=== PATIENT | female | born 1940 | race Caucasian/White ===

== ENCOUNTER 2016-08-07 20:05 | Inpatient (IN) | payer OTHER, MEDICARE ==
[~2016-08-07] VITALS: Ht 154.9 cm; Wt 99.8 kg
[~2016-08-07 20:05] MED LIST: ACETYL PO; ALEVE220 M2 PO; ALLEGRA ALLERG180 M1 PO; AMPHETAMINE SALT PO; AMPYRA10 MG PO; ASPIR 8181 MG PO; ATORVASTATIN CA10 MG PO; BACLOFEN10 M1 PO; CALCIUM500 MG PO; CARDURA8 M1 PO; CARNI PO; CHROMIUM200 MCG PO; COPAXONE40 MG/1 ML SC; COZAAR 100MG T100 MG PO; DEXILANT60 M1 PO; DOCUSATE SODIU250 MG PO; DULCOLAX5 M1 PO; ELLURA PO; FUROSEMIDE20 MG PO; FUROSEMIDE40 M1 PO; L-ARGININE500 M1 PO; LOSARTAN POTASS50 MG PO; MAGNESIUM OXID400 MG PO; METAMUCIL PACK3.4 GM PO; METFORMIN HCL500 M3 PO; NEURONTIN300 MG PO; NIFEDICAL XL60 MG PO; OMEGA-3 EPA &1000 MG PO; OSTEO BI-FLEX 21 TAB PO; PREMARIN V0.625 MG/G VAG; PREMARIN VAG; RASPBERRY KETONES PO; RECLAST5 MG/100 M IV; RITE AID KRILL500 MG PO; SENNA8.6 M1 PO; SYNTHROID50 MCG PO; TIZANIDINE HCL2 M1 PO; TIZANIDINE HCL2 MG PO; TIZANIDINE4 MG PO; TRADJENTA5 M1 PO; TUMERIC PO; VALIUM5 M2 PO; VITAB121000 PO; VITAMIN C1000 M1 PO; VITAMIN D35000 IU PO; ZANTAC 150MG150 MG PO; ZOLOFT50 M1 PO; ZYRTEC10 M3 PO
--- NOTE | 2016-08-07 20:47 | ED MVC/FALL/TRAUMA COMPLAINT ---
See Addendum History of Present Illness General Chief Complaint: Fall Stated Complaint: FALL/ ALL OVER PAIN Source: patient, family, old records Exam Limitations: no limitations Vital Signs & Intake/Output Vital Signs & Intake/Output Vital Signs Date Time Temp Pulse Resp B/P Pulse O2 O2 Flow FiO2 Ox Delivery Rate 08/08 0750 98.0 90 20 94/58 94 BIPAP / 0536 94 BIPAP / 0451 94 Part 60% ReBreather 08/08 0445 98.0 63 18 108/58 91 / 0400 97.2 65 20 90/48 94 CPAP 08/08 0256 97.3 72 18 107/50 91 Venti Mask 100% 08/07 2100 82 Nasal 4.5L Cannula 08/07 2017 97.0 90 22 164/82 83 Nasal 4.0L Cannula ED Intake and Output 08/08 0000 08/07 1200 Intake Total Output Total Balance Patient 210 lb Weight Allergies Coded Allergies: hydrochlorothiazide (From AVALIDE) (Intermediate, HEART RACE 11/20/15) irbesartan (From AVALIDE) (Intermediate, HEART RACE 11/20/15) adhesive (SKIN COMES OFF 11/20/15) mold (UNKNOWN 11/20/15) penicillin V (UNKNOWN 11/20/15) Gadolinium-Containing Contrast Medi (SYNCOPE FROM IV CONTRAST 11/20/15) Iodinated Contrast Media - Oral and (IODINATED CONTRAST MEDIA - IV DYE) (SYNCOPE FROM IV CONTRAST 11/20/15) Triage Note: PRESENTS S/P FALL APPROX 2 PM FELL WHILE ATTEMPTING TO TRANSFER MULTIPLE COMPLAINTS RIGHT FOOT / BILATERAL HIPS / BILATERAL SHOULDERS BACK ALSO STATE HAS BEEN HAVING PROBLEMS W/ URI STATES IS SCHED FOR CHEST CT Triage Nurses Notes Reviewed? yes Onset: Abrupt Duration: constant Timing: single episode today Severity: severe Severity Numbers: 10 Injuries/Fall Location: neck, upper extremity, back, pelvis, lower extremity Method of Injury: fall Loss of Consciousness: no loss of consciousness HPI: Patient is a 76-year-old female with a past medical history of significant multiple sclerosis who is currently wheelchair-bound and WEIGHT TRANSFERS ONLY ( PARTIAL WEIGHT BEARING AT BASELINE), obstructive sleep apnea currently on home nocturnal CPAP and oxygen 4 L, hypertension, PULMONARY HYPERTENSION, hyperlipidemia and hypothyroidism who presents to emergency room stating that this evening while patient was trying to wait transfer from her electric wheelchair to the toilet she misstepped and subsequently fell on her buttock and back region in which her knees and then hyperflexed. Patient complained of immediate back and neck pain and bilateral knee and right ankle and foot pain. Patient denies any preceding episode of lightheadedness or dizziness sensation. Denies any head strike. Denies any loss of consciousness. Denies any chest pain or abdominal pain. EMS was brought to the scene and assisted patient to her electric wheelchair however patient was brought in by . Patient states that the left shoulder pain began when the wait transfer from EMS occurred. No medications prior to arrival. Patient also states that the last 3 days she's had GENERALIZED weakness fatigue cough and worsening shortness of breath and not feeling well (TOI FREEMAN) Reconcile Medications Albuterol Sulfate (Proair Hfa) 90 MCG HFA.AER.AD 2 PUF INH Q4-6 PRN PRN sob ( Reported) Atorvastatin Calcium 10 MG TABLET 1 TAB PO 1700 cholesdtrol (Reported) Baclofen (Lioresal) 10 MG TABLET 30 MG PO 5XDAILY MUSCLE SPASMS (Reported) Bisacodyl (Dulcolax) 5 MG TABLET.DR 1 TAB PO AD PRN consti[ation (Reported) CETIRIZINE HCL (Zyrtec) 10 MG CAPSULE 1 CAP PO PRN ALLERGIES (Reported) Cranberry Extract (Ellura) 200 MG CAPSULE 1 CAP PO DAILY SUPPLEMENT (Reported ) Dexlansoprazole (Dexilant) 60 MG CAP.DR.BP 1 CAP PO DAILY GI (Reported) Diazepam (Valium) 5 MG TABLET 1 TAB PO PRN MUSCLE SPASMS (Reported) Docusate Sodium 250 MG CAPSULE 2 SGL PO DAILY STOOL SOFTENER (Reported) Doxazosin Mesylate (Cardura) 8 MG TABLET 1 TAB PO AT BEDTIME HTN (Reported) Enoxaparin Sodium (Lovenox) 40 MG/0.4 ML SYRINGE 0.4 ML SC DAILY dvt prophlyasix (Reported) Fexofenadine Hydrochloride (Ni) 180 MG TAB 1 TAB PO PRN ALLERGIES ( Reported) Furosemide 40 MG TABLET 1 TAB PO DAILY legs (Reported) Glatiramer Acetate (Copaxone) 40 MG/ML SYRINGE 40 MG SC SEE ADMIN CRITERIA MS (Reported) TUES, THURS SAT Levothyroxine Sodium (Synthroid) 50 MCG TABLET 1 TAB PO SEE ADMIN CRITERIA thyoird (Reported) 50 mcg in 5 days per week 75 mcg in 2 days per week Linagliptin (Tradjenta) 5 MG TABLET 1 TAB PO DAILY DIABETES (Reported) Metformin Hydrochloride (Metformin ER) [address] 1 TAB PO DAILY DIABETES ( Reported) Naproxen Sodium (Aleve) 220 MG TABLET 2 TAB PO PRN PAIN (Reported) Polyethylene Glycol 3350 (Miralax) 17 GRAM POWD.PACK 1 PAC PO DAILY condit[ tion (Reported) dissolve in water Psyllium Hydrophylic Muciloid (Metamucil Packet) 3.4 GRAM POWD.PACK 2 TSP PO BID GI (Reported) Sertraline HCl (Zoloft) 50 MG TABLET 1 TAB PO DAILY memtal heaklth (Reported) Spironolactone (Aldactone) 25 MG TABLET 0 PO SEE ADMIN CRITERIA druetic ( Reported) 25 in the AM 12.5 in the evening TIZANIDINE HCL (Tizanidine HCl) 2 MG TAB 1 TAB PO PRN MUSCLE SPASMS (Reported ) (SO DARNELL,KYLE) Past History Travel History Traveled to [place] past 21 day No Medical History Any Pertinent Medical History? see below for history Neurological: multiple sclerosis EENT: NONE Cardiovascular: hypertension, hyperlipidemia Respiratory: obstructive sleep apnea, pulmonary hypertension, 4LNC DEPENDENT Gastrointestinal: umbilical hernia Hepatic: NONE Renal: NONE Musculoskeletal: chronic back pain Psychiatric: NONE Endocrine: hyperthyroidism Blood Disorders: NONE Cancer(s): NONE AIR DEFENCE OFFICER/Reproductive: NONE History of MRSA: Yes History of VRE: No History of CDIFF: No Surgical History Surgical History: non-contributory Psychosocial History Who do you live with Spouse Services at Home None, Oxygen, Physical Therapy What is your primary language Estonian Tobacco Use: Never used ETOH Use: denies use Illicit Drug Use: denies illicit drug use Family History Family History, If Any: BROTHER (OLDER BROTHER: [place], STROKE, CAD, PVD). MOTHER (BREAST CA). FATHER ([place], RENAL FAILURE). SISTER Relation not specified for: FH: diabetes mellitus Hx Contributory? No (GEOVANY CANTRELL,TOI) Review of Systems Review of Systems Constitutional: Reports: no symptoms. Eyes: Reports: no symptoms. Ears, Nose, Throat, Mouth: Reports: no symptoms. Respiratory: Reports: no symptoms. Cardiovascular: Reports: no symptoms. Gastrointestinal/Abdominal: Reports: no symptoms. Genitourinary: Reports: no symptoms. Musculoskeletal: Reports: see HPI, back pain, joint pain, muscle pain. Skin: Reports: no symptoms. Neurological/Psychological: Reports: no symptoms. All Other Systems: Reviewed and Negative (TOI FREEMAN) Physical Exam Physical Exam General Appearance: mild distress, obese Head: atraumatic Respiratory: quiet respiration, decreased breath sounds Comments: HEENT: Normal EENT exam, extraocular motion intact, no nystagmus. Pupils equally round and reactive to light and accommodation. Nose is atraumatic. External auditory canal and Tympanic membranes clear. Pharynx normal. No swelling or edema. Neck: Normal inspection, generalized point tenderness noted decreased active range of motion noted Back: Normal inspection, generalized point tenderness noted, Cardiovascular: Regular rate and rhythms no murmurs rubs or gallops, normal JVP Respiratory: Chest nontender. No respiratory distress. Abdomen: Soft, nontender nondistended, no appreciable organomegaly. Normal bowel sounds. No ascites Extremity: No edema, no calf tenderness to palpation, normal and equal pulses. Bilateral hip decreased active range of motion generalized point tenderness Bilateral knee decreased active range of motion noted generalized point tenderness Right ankle noted point tenderness Right foot generalized point tenderness noted Bilateral lower extremity dermatomes intact pedal pulse +2 Left shoulder normal inspection generalize glenohumeral point tenderness decreased active range of motion noted with 90 of flexion Bilateral upper extremity dermatomes intact radial pulses +2 Neuro: Alert oriented x3, motor sensory normal, cranial nerves II through XII grossly intact. Skin: No appreciable rash on exposed skin, skin is warm and dry. Psych: Mood and affect is normal, memory and judgment is normal. Core Measures ACS in differential dx? No Severe Sepsis Present: No Septic Shock Present: No (TOI FREEMAN) Progress Differential Diagnosis: abd injury, C/T/L spine injury, ext injury, ICH, pelvis injury, pnemothorax, spinal cord injury Plan of Care: Orders Procedure Date/time Status Consistent Carbohydrate 3 08/08 B Active PT Evaluate & Treat 08/08 0700 Active Vital Signs 08/08 530 Active Teach/Educate 08/08 530 Active Pain Treatment and Response 08/08 530 Active Nutritional Intake, Monitor 08/08 530 Active Isolation 08/08 530 Active Intake & Output 08/08 530 Active Patient Care Conference 08/08 530 Active Activity/Ambulation 03/05 0531 Active THERAPIST ORDERS 03/05 0454 Complete OXYGEN SETUP (GEN) 08/08 0454 Complete STREP PNEUMO URINARY ANTIGEN 08/08 0417 Complete LEGIONELLA URINARY ANTIGEN 08/08 0417 Complete TRC EVALUATION (GEN) 08/08 0354 Active PT Evaluate & Treat 08/08 0351 Active Precautions 08/08 0351 Active FingerStick- Glucose 08/08 0345 Active Gallego, Insertion/Removal/Asses 08/08 034 Active CULTURE,URINE 08/08 034 Active CONTIN. POSITIVE AIRWAY PRESS 08/08 0326 Active Code Status 08/08 0326 Active Pathway - chart 08/08 0242 Active House Staff 08/08 0242 Active Code Status 08/08 0242 Complete LACTIC ACID 08/08 0229 Active Admit to inpatient 08/08 022 Active Patient Data 08/08 0221 Active TROPONIN LEVEL 08/08 0015 Complete VTE Mechanical Prophylaxis 08/08 UNK Active Vital Signs 08/08 UNK Active MISSING MEDICATION FORM 08/08 UNK Active ARTERIAL BLOOD GAS (GEN) 08/07 2358 Complete RAPID VIRAL INFLUENZA A 08/07 2358 Complete LOWER RESPIRATORY CULTURE 08/07 2358 Active BLOOD CULTURE 08/07 2329 Active LACTIC ACID 08/07 2329 Complete URINALYSIS 08/07 2319 Complete COMPREHENSIVE METABOLIC PANEL 08/07 231 Complete CBC WITHOUT DIFFERENTIAL 08/07 2319 Complete EKG 08/07 2319 Active Intake & Output 08/07 2101 Active Current Medications Sig/Tash Start time Last Medication Dose Stop Time Status Admin Atorvastatin Calcium 10 MG 1700 08/08 1700 AC (Lipitor) Baclofen 20 MG Q6 08/08 1200 AC (Lioresal 10MG Tablet) Enoxaparin Sodium 40 MG DAILY 08/08 1000 AC (Lovenox) Sertraline HCl 50 MG DAILY 08/08 1000 AC (Zoloft) Insulin Aspart 0 TIDAC 08/08 0800 AC (NovoLOG) Levothyroxine Sodium 0.05 MG DAILY AC 08/08 0700 CAN (Synthroid) Senna/Docusate Sodium 1 TAB BID PRN 08/08 0330 AC (Senokot S) Acetaminophen 650 MG Q6 PRN 08/08 0245 AC (Tylenol) Laboratory Tests 08/08/16 0440: Urinalysis LIGHT H, Urine Color YEL, Urine Clarity CLDY H, Urine pH 6.0, Ur Specific Smith 1.015, Urine Protein NEG, Urine Ketones NEG, Urine Nitrite NEG, Urine Bilirubin NEG, Urine Urobilinogen 0.2, Ur Leukocyte Esterase LARGE H, Ur Microscopic SEDIMENT EXAMINED, Urine RBC 3-5, Urine WBC 25-50 H, Ur Epithelial Cells FEW, Urine Bacteria MANY H, Urine Mucus FEW, Urine Hemoglobin TRACE- INTACT, Urine Glucose NEG 08/08/16 0020: pH 7.42, pCO2 41, pO2 52 L, HCO3 26, ABG O2 Sat (Measured) 86.0 L, P-50 (Temp Corrected) Y, Carboxyhemoglobin 1.0 L, O2 Concentration % 60%, Temperature 97.0 , O2 Delivery Method PRB, Phlebotomy Draw Site RIGHT RADIAL 08/08/16 001: Lactic Acid 0.8 08/08/1614: Anion Gap 10, Estimated GFR > 60, BUN/Creatinine Ratio 36.3 H, Glucose 105 H, Calcium 9.4, Total Bilirubin 0.9, AST 17, ALT 27, Alkaline Phosphatase 74, Troponin I 0.02, Total Protein 6.4, Albumin 3.7, Globulin 2.7, Albumin/Globulin Ratio 1.4, CBC w Diff NO MAN DIFF REQ, RBC 4.64, MCV 84.5, MCH 28.1, RDW 17.3 H , MPV 8.7, Gran % 87.4 H, Lymphocytes % 7.6 L, Monocytes % 3.8, Eosinophils % 0.8, Basophils % 0.4, Absolute Granulocytes 11.8 H, Absolute Lymphocytes 1.0 L , Absolute Monocytes 0.5, Absolute Eosinophils 0.1, Absolute Basophils 0.1, PUBS MCHC 33.2 08/07/162357: Troponin I Cancelled Microbiology 08/09 439 URINE ROUT: Legionella Antigen - COMP 08/09 439 URINE ROUT: Streptococcus pneumoniae Antigen (M - COMP 08/09 439 URINE ROUT: Urine Culture - RECD 08/08 0325 NASOPHARYN: Influenza Virus A & B Rapid Smear - COMP 08/08 001 BLOOD: Blood Culture - RECD 08/08 0000 BLOOD: Blood Culture - RECD 08/07 2357 LOWER RESP: Respiratory Culture - COLB 08/07 2357 LOWER RESP: Gram Stain - COLB Patient will be imaged and where she is symptomatically tender on exam Patient had unremarkable imaging to where patient was symptomatically tender and painful. Patient was evaluated by me and nursing staff which patient was unable to arise out of bed and could not weight-bear transfer. Patient was evaluated for concerns of upper respiratory infection and hypoxia Chest x-ray was unremarkable no changes DISCUSSED HAND OFF WITH DR. DUNLAP PRIOR TO ADMISSION (GEOVANY CANTRELL,TOI) Diagnostic Imaging: Viewed by Me: Radiology Read, CT Scan. Radiology Impression: no acute abnormality Hand-Off Endorsed To: MARTITA DUNLAP MD Endorsed Time: 0120 Pending: EKG, labs Comments: PATIENT: JENIFFER DUEÑAS PRESENT AGE: 76 PATIENT ACCOUNT NO: [id number] : 42 LOCATION: [facility] ORDERING PHYSICIAN: TOI CANTRELL SERVICE DATE: 08/07/16 EXAM TYPE: RAD - XRY-PORTABLE CHEST XRAY EXAMINATION: XR PORTABLE CHEST CLINICAL INFORMATION: Partially visualized opacity of left lung on shoulder radiograph. COMPARISON: Chest CT from 02/06/2016. TECHNIQUE: Portable AP view of the chest was obtained. FINDINGS: Obese body habitus. The patient is slightly rotated to the left. Cardiac silhouette and pulmonary arteries are chronically enlarged. The opacity observed on the left shoulder radiographs appears to correspond to enlarged vessels at the left hilum. Thoracic aorta is calcified. The left lower lobe is suboptimally evaluated due to the patient's body habitus and rotation. However, there is overt pulmonary consolidation. No pulmonary edema or pleural effusion. The visualized bones of the thorax are intact. IMPRESSION: 1. Cardiomegaly. 2. Pulmonary arteries are chronically enlarged, consistent with pulmonary arterial hypertension. PATIENT: JENIFFER DUEÑAS PRESENT AGE: 76 PATIENT ACCOUNT NO: [id number] : 42 LOCATION: [facility] ORDERING PHYSICIAN: TOI CANTRELL SERVICE DATE: 08/07/16 EXAM TYPE: CAT - CT ABD & PELVIS W/O IV CONTRAS EXAMINATION: CT ABDOMEN AND PELVIS WITHOUT CONTRAST CLINICAL INFORMATION: History of fall and pain. COMPARISON: CT abdomen and pelvis from 11/21/2015. TECHNIQUE: Multidetector volumetric imaging was performed from the superior aspect of the liver through the pubic symphysis. Sagittal and coronal reformatted images were obtained on the technologist's workstation. DLP: 1290 mGy-cm FINDINGS: CREDIT RISK SPECIALIST: Obese body habitus. LUNG BASES: There are opacities of atelectasis in the dependent aspect of each lower lobe. Mitral valve annulus is calcified. No pericardial or pleural effusion. LIVER, GALLBLADDER, AND BILIARY TREE: There is hepatomegaly without evidence of focal hepatic lesion or intrahepatic bile duct dilatation. No perihepatic fluid collection. Gallbladder is unremarkable. PANCREAS: Pancreas is atrophied. No peripancreatic edema. SPLEEN: Spleen measures up to 13.3 cm maximum dimension. ADRENAL GLANDS: There is an old, 1.1 cm wide nodule at the apex of the left adrenal gland, likely representing a small adenoma. KIDNEYS AND URETERS: The kidneys are normal in size, shape, and attenuation. No hydronephrosis, hydroureter, or calculi seen. No perinephric stranding. BLADDER: Unremarkable. GASTROINTESTINAL TRACT: Stomach is unremarkable. Loops of bowel are normal in size. There is diverticulosis of the sigmoid colon without diverticulitis. No ascites or pneumoperitoneum. ABDOMINAL WALL: At the level of the umbilicus, there is an old, fat-containing hernia. The hernia sac measures 9.6 cm transverse, 6 cm AP and 7.6 cm craniocaudal. No abdominal wall hematoma. LYMPH NODES: No pathologic sized lymph nodes in the abdomen or pelvis. VASCULAR: There is atherosclerotic calcification of the abdominal aorta without aneurysm. No retroperitoneal hematoma. PELVIC VISCERA: The uterus is absent. No pelvic free fluid. OSSEOUS STRUCTURES: No acute findings within the degenerated lumbar spine compared to 11/21/2015. There is multilevel facet osteoarthritis and disc degeneration as manifest by disc space narrowing, vacuum disc phenomenon and osteophyte formation. At L3-L4, there is chronic loss of the disc space, disc bulge and facet arthropathy resulting in moderate bilateral foraminal stenosis at this level. At L4-L5, there is chronic 0.4 cm of grade 1 anterolisthesis of L4 on L5 without evidence of acute spondylolysis or vertebral compression fracture. There is chronic degenerative disc space narrowing and disc bulge at this level which, combined with the facet arthropathy, produce at least moderate bilateral foraminal stenosis. At L5-S1, the chronic disc degeneration, disc bulge and facet arthropathy produce [id number] bilateral foraminal stenosis. Pelvic bones have normal alignment. There is degenerative subarticular sclerosis and osteophyte formation at the anteroinferior aspect of each SI joint. IMPRESSION: 1. Obese body habitus and chronic hepatosplenomegaly. 2. Fat-containing midline hernia in the umbilical region is unchanged compared to 11/21/2015. 3. Diverticulosis of the sigmoid colon without diverticulitis. 4. No acute fractures or traumatic subluxations within the chronically degenerated lumbar spine. PATIENT: JENIFFER DUEÑAS PRESENT AGE: 76 PATIENT ACCOUNT NO: [id number] : 42 LOCATION: ER ORDERING PHYSICIAN: TOI CANTRELL SERVICE DATE: 08/07/16 EXAM TYPE: CAT - CT CERV SPINE WO IV CONTRAST EXAMINATION: CT CERVICAL SPINE WITHOUT CONTRAST CLINICAL INFORMATION: Fall, pain COMPARISON: None TECHNIQUE: Helical noncontrast CT imaging was acquired through the cervical spine and source images were reviewed along with axial reconstructions and sagittal and coronal MPRs. DLP: 363 mGy-cm FINDINGS: There is normal vertebral body height and alignment of cervical spine. The C1-C2, craniocervical and cervicothoracic junctions are within normal limits. There is mild narrowing of intervertebral disc space with adjacent endplate sclerotic changes at C5-C6, C6-C7 level. Findings are degenerative in nature. The posterior elements are intact. There are multiple small lymph nodes seen in the lower cervical region and superior mediastinum. The paraspinal soft tissue is otherwise unremarkable. The visualized lung apices demonstrate mosaic attenuation of the pulmonary parenchyma which could be due to air trapping. IMPRESSION: 1. No acute fracture or dislocation of cervical spine. 2. Partial visualization of the superior mediastinal and lower cervical adenopathy. PATIENT: JENIFFER DUEÑAS PRESENT AGE: 76 PATIENT ACCOUNT NO: [id number] : 42 LOCATION: ER ORDERING PHYSICIAN: TOI CANTRELL SERVICE DATE: 08/07/16 EXAM TYPE: RAD - XRY-SHOULDER COMPLETE-LEFT EXAMINATION: XR SHOULDER, LEFT CLINICAL INFORMATION: Fall, pain COMPARISON: None TECHNIQUE: AP external rotation, Grashey, scapular Y views of the left shoulder. FINDINGS: The bones and soft tissues are normal. No acute fracture. Glenohumeral and acromioclavicular alignment is anatomic with normal joint space. No abnormal soft tissue calcifications. Partial visualization of left lung opacity. IMPRESSION: No acute fracture or dislocation of left shoulder. Partial visualization of left pulmonary opacity. Consider further chest x-ray evaluation. PATIENT: JENIFFER DUEÑAS PRESENT AGE: 76 PATIENT ACCOUNT NO: [id number] : 42 LOCATION: [facility] ORDERING PHYSICIAN: TOI CANTRELL SERVICE DATE: 08/07/16 EXAM TYPE: CAT - CT LOWER EXT WO IV CONTRAST EXAMINATION: CT LOWER EXTREMITY WITHOUT CONTRAST, BILATERAL CLINICAL INFORMATION: 76-year-old female with history of fall. Bilateral hip, knee, right ankle and foot pain. COMPARISON: CT images of abdomen pelvis from 11/21/2015. TECHNIQUE: Noncontrast multidetector CT imaging was performed from level of the lower pelvis to the midfoot using 0.625 mm collimation. Axial images are presented at 0.625 mm and 2.5 mm slice thickness. Coronal and sagittal reformatted images were generated and reviewed. The images acquired through the feet are suboptimal due to patient motion and image blurring. DLP: 2941 mGy-cm FINDINGS: Patient has an obese body habitus and subcutaneous tissue edema is present within both thighs, legs and ankles. No focal soft tissue hematoma. Incidentally noted is a 1.8 x 3.2 x 5.8 cm intramuscular lipoma of the left vastus lateralis muscle. Bones have normal alignment at the pubic symphysis and hips. No evidence of femoral fracture, acetabular injury or hip joint effusion. At the right knee, there is a moderate joint effusion and tricompartmental osteoarthritis with joint space narrowing most severe at the lateral compartment. At the left knee, there is a small joint effusion and tricompartmental osteoarthritis with joint space narrowing most pronounced (moderate severity) at the lateral tibiofemoral compartment. No acute fracture or traumatic subluxation at either knee. Bones have normal alignment at each ankle. The talar dome is well-positioned within each intact ankle mortise. No ankle joint effusion. The visualized proximal tarsal bones are normal, bilaterally. The Achilles tendon is normal, bilaterally. At each ankle, the visualized flexor, extensor, tibialis and peroneal tendons are grossly intact. IMPRESSION: 1. No acute osseous injury in either extremity from the level of the hips to ankles. 2. 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 3. Obese body habitus and subcutaneous tissue edema within both lower extremities; no focal soft tissue hematoma. (TOI FREEMAN) Hand-Off Endorsed To: KYLE RIZZO MD Endorsed Time: 0700 Pending: consult (GERMÁN DARNELL,MARTITA Phillips) Departure Departure Disposition: STILL A PATIENT Condition: Stable Clinical Impression Primary Impression: Inability to ambulate due to multiple joints Secondary Impressions: Fall, Hypoxia, Pulmonary hypertension Referrals: CAROLA DARNELL,MICHI Phillips (PCP/Family) Departure Forms: Customer Survey General Discharge Information (TOI FREEMAN) PA/WASHER ASSEMBLER Co-Sign Statement Statement: ED Attending supervision documentation- [X] I saw and evaluated the patient. I have also reviewed all the pertinent lab results and diagnostic results. I agree with the findings and the plan of care as documented in the PA's/WASHER ASSEMBLER's documentation. [X] I have reviewed the ED Record and agree with the PA's/WASHER ASSEMBLER's documentation. [] Additions or exceptions (if any) to the PAs/WASHER ASSEMBLER's note and plan are summarized below: [] (GERMÁN DARNELL,MARTITA Phillips) PA/WASHER ASSEMBLER Co-Sign Statement Statement: ED Attending supervision documentation- x I saw and evaluated the patient. I have also reviewed all the pertinent lab results and diagnostic results. I agree with the findings and the plan of care as documented in the PA's/WASHER ASSEMBLER's documentation. [] I have reviewed the ED Record and agree with the PA's/WASHER ASSEMBLER's documentation. [] Additions or exceptions (if any) to the PAs/WASHER ASSEMBLER's note and plan are summarized below: [] (KYLE RIZZO MD)
--- NOTE | 2016-08-07 20:59 | NUR ---
PRESENTS S/P FALL APPROX 2 PM FELL WHILE ATTEMPTING TO TRANSFER MULTIPLE COMPLAINTS RIGHT FOOT / BILATERAL HIPS / BILATERAL SHOULDERS BACK ALSO STATE HAS BEEN HAVING PROBLEMS W/ URI STATES IS SCHED FOR CHEST CT WRITTEN BY ROSALINDA Levine
--- NOTE | 2016-08-07 21:07 | NUR ---
PT MEDICATED WITH 4MG SC MORPHINE PER EMAR FOR PAIN 01/04. PT STATES PAIN ON RIGHT HIP AND RIGHT ARM.
--- NOTE | 2016-08-07 21:49 | NUR ---
THIS RN AND ROSALINDA RAMIREZ BROUGHT PT TO CT SCAN AND MOVED PT TO CT TABLE.
--- NOTE | 2016-08-07 22:43 | NUR ---
PT ROLLED AND CHANGED IN BED, ADJUSTED. PT TRIED TO GO ON THE BEDPAN, BED UMANA WAS UNCOMFORTABLE FOR PT. PT PROVIDED WITH CASSANDRA PAD ON BED AND WILL BE CLEANED . PT HAS CALL ANGLIN IN HAND AND FAMILY AT BEDSIDE.
--- NOTE | 2016-08-07 22:51 | CT SCAN REPORT ---
EXAMINATION: CT ABDOMEN AND PELVIS WITHOUT CONTRAST CLINICAL INFORMATION: History of fall and pain. COMPARISON: CT abdomen and pelvis from 11/21/2015. TECHNIQUE: Multidetector volumetric imaging was performed from the superior aspect of the liver through the pubic symphysis. Sagittal and coronal reformatted images were obtained on the technologist's workstation. DLP: 1290 mGy-cm FINDINGS: DIE SINKER: Obese body habitus. LUNG BASES: There are opacities of atelectasis in the dependent aspect of each lower lobe. Mitral valve annulus is calcified. No pericardial or pleural effusion. LIVER, GALLBLADDER, AND BILIARY TREE: There is hepatomegaly without evidence of focal hepatic lesion or intrahepatic bile duct dilatation. No perihepatic fluid collection. Gallbladder is unremarkable. PANCREAS: Pancreas is atrophied. No peripancreatic edema. SPLEEN: Spleen measures up to 13.3 cm maximum dimension. ADRENAL GLANDS: There is an old, 1.1 cm wide nodule at the apex of the left adrenal gland, likely representing a small adenoma. KIDNEYS AND URETERS: The kidneys are normal in size, shape, and attenuation. No hydronephrosis, hydroureter, or calculi seen. No perinephric stranding. BLADDER: Unremarkable. GASTROINTESTINAL TRACT: Stomach is unremarkable. Loops of bowel are normal in size. There is diverticulosis of the sigmoid colon without diverticulitis. No ascites or pneumoperitoneum. ABDOMINAL WALL: At the level of the umbilicus, there is an old, fat-containing hernia. The hernia sac measures 9.6 cm transverse, 6 cm AP and 7.6 cm craniocaudal. No abdominal wall hematoma. LYMPH NODES: No pathologic sized lymph nodes in the abdomen or pelvis. VASCULAR: There is atherosclerotic calcification of the abdominal aorta without aneurysm. No retroperitoneal hematoma. PELVIC VISCERA: The uterus is absent. No pelvic free fluid. OSSEOUS STRUCTURES: No acute findings within the degenerated lumbar spine compared to 11/21/2015. There is multilevel facet osteoarthritis and disc degeneration as manifest by disc space narrowing, vacuum disc phenomenon and osteophyte formation. At L3-L4, there is chronic loss of the disc space, disc bulge and facet arthropathy resulting in moderate bilateral foraminal stenosis at this level. At L4-L5, there is chronic 0.4 cm of grade 1 anterolisthesis of L4 on L5 without evidence of acute spondylolysis or vertebral compression fracture. There is chronic degenerative disc space narrowing and disc bulge at this level which, combined with the facet arthropathy, produce at least moderate bilateral foraminal stenosis. At L5-S1, the chronic disc degeneration, disc bulge and facet arthropathy produce [id number] bilateral foraminal stenosis. Pelvic bones have normal alignment. There is degenerative subarticular sclerosis and osteophyte formation at the anteroinferior aspect of each SI joint. IMPRESSION: 1. Obese body habitus and chronic hepatosplenomegaly. 2. Fat-containing midline hernia in the umbilical region is unchanged compared to 11/21/2015. 3. Diverticulosis of the sigmoid colon without diverticulitis. 4. No acute fractures or traumatic subluxations within the chronically degenerated lumbar spine.
--- NOTE | 2016-08-07 22:53 | CT SCAN REPORT ---
EXAMINATION: CT CERVICAL SPINE WITHOUT CONTRAST CLINICAL INFORMATION: Fall, pain COMPARISON: None TECHNIQUE: Helical noncontrast CT imaging was acquired through the cervical spine and source images were reviewed along with axial reconstructions and sagittal and coronal MPRs. DLP: 363 mGy-cm FINDINGS: There is normal vertebral body height and alignment of cervical spine. The C1-C2, craniocervical and cervicothoracic junctions are within normal limits. There is mild narrowing of intervertebral disc space with adjacent endplate sclerotic changes at C5-C6, C6-C7 level. Findings are degenerative in nature. The posterior elements are intact. There are multiple small lymph nodes seen in the lower cervical region and superior mediastinum. The paraspinal soft tissue is otherwise unremarkable. The visualized lung apices demonstrate mosaic attenuation of the pulmonary parenchyma which could be due to air trapping. IMPRESSION: 1. No acute fracture or dislocation of cervical spine. 2. Partial visualization of the superior mediastinal and lower cervical adenopathy.
--- NOTE | 2016-08-07 22:58 | RADIOLOGY REPORT ---
EXAMINATION: XR SHOULDER, LEFT CLINICAL INFORMATION: Fall, pain COMPARISON: None TECHNIQUE: AP external rotation, Grashey, scapular Y views of the left shoulder. FINDINGS: The bones and soft tissues are normal. No acute fracture. Glenohumeral and acromioclavicular alignment is anatomic with normal joint space. No abnormal soft tissue calcifications. Partial visualization of left lung opacity. IMPRESSION: No acute fracture or dislocation of left shoulder. Partial visualization of left pulmonary opacity. Consider further chest x-ray evaluation.
--- NOTE | 2016-08-07 23:08 | CT SCAN REPORT ---
EXAMINATION: CT LOWER EXTREMITY WITHOUT CONTRAST, BILATERAL CLINICAL INFORMATION: 76-year-old female with history of fall. Bilateral hip, knee, right ankle and foot pain. COMPARISON: CT images of abdomen pelvis from 11/21/2015. TECHNIQUE: Noncontrast multidetector CT imaging was performed from level of the lower pelvis to the midfoot using 0.625 mm collimation. Axial images are presented at 0.625 mm and 2.5 mm slice thickness. Coronal and sagittal reformatted images were generated and reviewed. The images acquired through the feet are suboptimal due to patient motion and image blurring. DLP: 2941 mGy-cm FINDINGS: Patient has an obese body habitus and subcutaneous tissue edema is present within both thighs, legs and ankles. No focal soft tissue hematoma. Incidentally noted is a 1.8 x 3.2 x 5.8 cm intramuscular lipoma of the left vastus lateralis muscle. Bones have normal alignment at the pubic symphysis and hips. No evidence of femoral fracture, acetabular injury or hip joint effusion. At the right knee, there is a moderate joint effusion and tricompartmental osteoarthritis with joint space narrowing most severe at the lateral compartment. At the left knee, there is a small joint effusion and tricompartmental osteoarthritis with joint space narrowing most pronounced (moderate severity) at the lateral tibiofemoral compartment. No acute fracture or traumatic subluxation at either knee. Bones have normal alignment at each ankle. The talar dome is well-positioned within each intact ankle mortise. No ankle joint effusion. The visualized proximal tarsal bones are normal, bilaterally. The Achilles tendon is normal, bilaterally. At each ankle, the visualized flexor, extensor, tibialis and peroneal tendons are grossly intact. IMPRESSION: 1. No acute osseous injury in either extremity from the level of the hips to ankles. 2. 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 3. Obese body habitus and subcutaneous tissue edema within both lower extremities; no focal soft tissue hematoma.
--- NOTE | 2016-08-07 23:22 | NUR ---
THIS RN AND TAMIA Levine ATTEMPTED TO STAND AMBULATE PT WITH ASSISTANCE, PT UNABLE TO, FAILED.
--- NOTE | 2016-08-07 23:59 | RADIOLOGY REPORT ---
EXAMINATION: XR PORTABLE CHEST CLINICAL INFORMATION: Partially visualized opacity of left lung on shoulder radiograph. COMPARISON: Chest CT from 02/06/2016. TECHNIQUE: Portable AP view of the chest was obtained. FINDINGS: Obese body habitus. The patient is slightly rotated to the left. Cardiac silhouette and pulmonary arteries are chronically enlarged. The opacity observed on the left shoulder radiographs appears to correspond to enlarged vessels at the left hilum. Thoracic aorta is calcified. The left lower lobe is suboptimally evaluated due to the patient's body habitus and rotation. However, there is overt pulmonary consolidation. No pulmonary edema or pleural effusion. The visualized bones of the thorax are intact. IMPRESSION: 1. Cardiomegaly. 2. Pulmonary arteries are chronically enlarged, consistent with pulmonary arterial hypertension.
--- NOTE | 2016-08-08 00:24 | NUR ---
IV ACCESS ESTABLISHED BY THIS RN LH#[id number], LABS DRAWN AND SENT BY THIS RN (LAV, SST, BLUE,SCHAEFFER) BLOOD CULTURES COLLECTED AND SENT.
--- NOTE | 2016-08-08 00:25 | NUR ---
RESPIRATORY IN RM FOR ABG.
[2016-08-08 00:38] LABS: ABSOLUTE BASOPHIL COUNT 0.1 /CUMM (0.0-0.2); ABSOLUTE EOSINOPHIL COUNT 0.1 /CUMM (0.0-0.7); ABSOLUTE GRANULOCYTE CT 11.8 /CUMM (1.4-6.5); ABSOLUTE MONOCYTE COUNT 0.5 /CUMM (0.10-0.60); BASOPHIL % 0.4 % (0.0-2.0); EOSINOPHIL % 0.8 % (0-5); GRANULOCYTE % 87.4 % (42.2-75.2); HEMATOCRIT 39.2 % (37-47); MEAN CORPUSCULAR HGB 28.1 PG (27.0-31.0); MEAN CORPUSCULAR HGB CONC 33.2 G/DL (33.0-37.0); MEAN CORPUSCULAR VOLUME 84.5 FL (81.0-99.0); MEAN PLATELET VOLUME 8.7 FL (7.4-10.4); PLATELET COUNT 200 /CUMM (130-400); RBC DISTRIBUTION WIDTH 17.3 % (11.5-14.5); RED BLOOD CELL CT 4.64 /CUMM (4.20-5.40)
[2016-08-08 01:23] LABS: WHITE BLOOD CELL COUNT 13.5 /CUMM (4.8-10.8)
--- NOTE | 2016-08-08 02:35 | NUR ---
PT TO CT SCAN
--- NOTE | 2016-08-08 02:43 | NUR ---
PT TO CT SCAN
--- NOTE | 2016-08-08 03:00 | NUR ---
HOUSE STAFF IN FOR EVAL
--- NOTE | 2016-08-08 03:18 | NUR ---
PT GOING TO ROOM 183-1
[2016-08-08] MEDS ORDERED: ATORVASTATIN CA10 M1 PO (03:25)
--- NOTE | 2016-08-08 03:26 | NUR ---
FLU SWAB COLLECTED AND SENT BY THIS RN
--- NOTE | 2016-08-08 03:26 | History & Physical ---
VIVIEN DARNELLBLAYNE 08/08/16 0325: General Information and HPI MD Statement: I have seen and personally examined JENIFFER DUEÑAS and documented this H&P. The patient is a 76 year old F BIBA after sustaining a mechanical fall. Source of Information: patient, EMS Exam Limitations: no limitations History of Present Illness: 76 year old woman with multiple medical problems significant for multiple sclerosis brought in by ambulance for evaluation after sustaining a mechanical fall. Patient is somnolent and lethargic, history of present illness is difficult to obtain secondary to clinical condition. She was using the toilet when she went to transfer back to the wheelchair when she accidentally slipped. She reports falling and striking her right side of her body without headstrike. She reports losing consciousness and does not recall how long she was unconscious. The fall was not witnessed and she denies becoming incontinent of urine or stool during this event. She admits to also feeling run down for the past few days with a "cold". She reports symptoms of fatigue, malase, blurred/double vision, lightheadedness/ dizzynessm sneezing, nonproductive cough, decreased oral intake, constipation, and urinary retention. Otherwise she denies any headache, fever, chills, chest pain, palpitations, abdominal pain, nausea, vomiting, diarrhea, urinary frequency/urgency/burning/ pain. PMHx: Multiple sclerosis, VALARIE on CPAP, pulmonary hypertension, HTN, HLD, Hypothyroidism Allergies/Medications Allergies: Coded Allergies: hydrochlorothiazide (From AVALIDE) (Intermediate, HEART RACE 11/20/15) irbesartan (From AVALIDE) (Intermediate, HEART RACE 11/20/15) adhesive (SKIN COMES OFF 11/20/15) mold (UNKNOWN 11/20/15) penicillin V (UNKNOWN 11/20/15) Gadolinium-Containing Contrast Medi (SYNCOPE FROM IV CONTRAST 11/20/15) Iodinated Contrast Media - Oral and (IODINATED CONTRAST MEDIA - IV DYE) (SYNCOPE FROM IV CONTRAST 11/20/15) Home Med list Albuterol Sulfate (Proair Hfa) 90 MCG HFA.AER.AD 2 PUF INH Q4-6 PRN PRN sob ( Reported) Atorvastatin Calcium 10 MG TABLET 1 TAB PO 1700 cholesdtrol (Reported) Baclofen (Lioresal) 10 MG TABLET 30 MG PO 5XDAILY MUSCLE SPASMS (Reported) Bisacodyl (Dulcolax) 5 MG TABLET.DR 1 TAB PO AD PRN consti[ation (Reported) CETIRIZINE HCL (Zyrtec) 10 MG CAPSULE 1 CAP PO PRN ALLERGIES (Reported) Cranberry Extract (Ellura) 200 MG CAPSULE 1 CAP PO DAILY SUPPLEMENT (Reported ) Dexlansoprazole (Dexilant) 60 MG CAP.DR.BP 1 CAP PO DAILY GI (Reported) Diazepam (Valium) 5 MG TABLET 1 TAB PO PRN MUSCLE SPASMS (Reported) Docusate Sodium 250 MG CAPSULE 2 SGL PO DAILY STOOL SOFTENER (Reported) Doxazosin Mesylate (Cardura) 8 MG TABLET 1 TAB PO AT BEDTIME HTN (Reported) Enoxaparin Sodium (Lovenox) 40 MG/0.4 ML SYRINGE 0.4 ML SC DAILY dvt prophlyasix (Reported) Fexofenadine Hydrochloride (Ni) 180 MG TAB 1 TAB PO PRN ALLERGIES ( Reported) Furosemide 40 MG TABLET 1 TAB PO DAILY legs (Reported) Glatiramer Acetate (Copaxone) 40 MG/ML SYRINGE 40 MG SC SEE ADMIN CRITERIA MS (Reported) TUES, THURS SAT Levothyroxine Sodium (Synthroid) 50 MCG TABLET 1 TAB PO SEE ADMIN CRITERIA thyoird (Reported) 50 mcg in 5 days per week 75 mcg in 2 days per week Linagliptin (Tradjenta) 5 MG TABLET 1 TAB PO DAILY DIABETES (Reported) Metformin Hydrochloride (Metformin ER) [address] 1 TAB PO DAILY DIABETES ( Reported) Naproxen Sodium (Aleve) 220 MG TABLET 2 TAB PO PRN PAIN (Reported) Polyethylene Glycol 3350 (Miralax) 17 GRAM POWD.PACK 1 PAC PO DAILY condit[ tion (Reported) dissolve in water Psyllium Hydrophylic Muciloid (Metamucil Packet) 3.4 GRAM POWD.PACK 2 TSP PO BID GI (Reported) Sertraline HCl (Zoloft) 50 MG TABLET 1 TAB PO DAILY memtal heaklth (Reported) Spironolactone (Aldactone) 25 MG TABLET 0 PO SEE ADMIN CRITERIA druetic ( Reported) 25 in the AM 12.5 in the evening TIZANIDINE HCL (Tizanidine HCl) 2 MG TAB 1 TAB PO PRN MUSCLE SPASMS (Reported ) Past History Travel History Traveled to [place] past 21 day No Medical History Neurological: multiple sclerosis EENT: NONE Cardiovascular: hypertension, hyperlipidemia Respiratory: obstructive sleep apnea, pulmonary hypertension, 4LNC DEPENDENT Gastrointestinal: umbilical hernia Hepatic: NONE Renal: NONE Musculoskeletal: chronic back pain Psychiatric: NONE Endocrine: hyperthyroidism Blood Disorders: NONE Cancer(s): NONE INDUSTRIAL MAINTENANCE REPAIRER/Reproductive: NONE History of MRSA: Yes History of VRE: No History of CDIFF: No Surgical History Surgical History: non-contributory Past Family/Social History Family History Relations & Conditions if any BROTHER (OLDER BROTHER: [place], STROKE, CAD, PVD). MOTHER (BREAST CA). FATHER ([place], RENAL FAILURE). SISTER Relation not specified for: FH: diabetes mellitus Psychosocial History Services at Home: None, Oxygen, Physical Therapy ETOH Use: denies use Illicit Drug Use: denies illicit drug use Review of Systems Review of Systems Constitutional: Reports: see HPI. Exam & Diagnostic Data Last 24 Hrs of Vital Signs/I&O Vital Signs Date Time Temp Pulse Resp B/P Pulse O2 O2 Flow FiO2 Ox Delivery Rate 08/08 0256 97.3 72 18 107/50 91 Venti Mask 100% 08/071 82 Nasal 4.5L Cannula 08/07 2017 97.0 90 22 164/82 83 Nasal 4.0L Cannula Intake & Output 08/08 0800 08/08 0000 08/07 1600 Intake Total Output Total Balance Patient 95.254 kg Weight Physical Exam General Appearance Mild Distress, Somnolent/Lethargic Skin No Rashes, No Breakdown, No Significant Lesion, Chronic lower extremity skin changes HEENT Atraumatic, Dry mucous membranes, PERRL Neck Supple, No JVD, Nontender Cardiovascular Regular Rate, Normal S1, Normal S2, No Murmurs Lungs diminished breath sounds bilaterally without any obviosu wheezing, rhonchi , or crackles Abdomen Normal Bowel Sounds, Soft, No Tenderness, No Hepatospenomegaly, No Masses, Obese Neurological Sensation Intact, Slow speech Extremities No Clubbing, No Cyanosis, Normal Pulses Vascular Normal Pulses, Pulses Symmetrical Last 24 Hrs of Labs/Kulwinder: Laboratory Tests 08/08/16 0020: pH 7.42, pCO2 41, pO2 52 L, HCO3 26, ABG O2 Sat (Measured) 86.0 L, P-50 (Temp Corrected) Y, Carboxyhemoglobin 1.0 L, O2 Concentration % 60%, Temperature 97.0 , O2 Delivery Method PRB, Phlebotomy Draw Site RIGHT RADIAL 08/08/16 0015: Lactic Acid 0.8 08/08/16 001: Anion Gap 10, Estimated GFR > 60, BUN/Creatinine Ratio 36.3 H, Glucose 105 H, Calcium 9.4, Total Bilirubin 0.9, AST 17, ALT 27, Alkaline Phosphatase 74, Troponin I 0.02, Total Protein 6.4, Albumin 3.7, Globulin 2.7, Albumin/Globulin Ratio 1.4, CBC w Diff NO MAN DIFF REQ, RBC 4.64, MCV 84.5, MCH 28.1, RDW 17.3 H , MPV 8.7, Gran % 87.4 H, Lymphocytes % 7.6 L, Monocytes % 3.8, Eosinophils % 0.8, Basophils % 0.4, Absolute Granulocytes 11.8 H, Absolute Lymphocytes 1.0 L , Absolute Monocytes 0.5, Absolute Eosinophils 0.1, Absolute Basophils 0.1, PUBS MCHC 33.2 08/07/162357: Troponin I Cancelled Microbiology 08/08 0325 NASOPHARYN: Influenza Virus A & B Rapid Smear - RECD 08/08 0015 BLOOD: Blood Culture - RECD 08/08 0000 BLOOD: Blood Culture - RECD 08/07 2357 LOWER RESP: Respiratory Culture - ORD 08/07 2357 LOWER RESP: Gram Stain - ORD Diagnostic Data Other Results CT CHEST WITHOUT CONTRAST IMPRESSION: 1. Regions of opacity in the left upper lobe and bilateral lower lobes which are mostly curvilinear in nature, favoring that this at least mostly represents atelectasis. A component of superimposed consolidation would be difficult to exclude in the proper clinical setting. 2. Multiple scattered mediastinal lymph nodes, the largest of which is mildly enlarged anterior to the suman; appearance is similar to prior. 3. Cardiomegaly and trace pericardial effusion. 4. Dilated main pulmonary artery, suspicious for pulmonary artery hypertension. PORTABLE CHEST XRAY IMPRESSION: 1. Cardiomegaly. 2. Pulmonary arteries are chronically enlarged, consistent with pulmonary arterial hypertension. CT LOWER EXT WO IV CONTRAST IMPRESSION: 1. No acute osseous injury in either extremity from the level of the hips to ankles. 2. 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 3. Obese body habitus and subcutaneous tissue edema within both lower extremities; no focal soft tissue hematoma. XRY-SHOULDER COMPLETE-LEFT IMPRESSION: No acute fracture or dislocation of left shoulder. Partial visualization of left pulmonary opacity. Consider further chest x-ray evaluation. CT CERV SPINE WO IV CONTRAST IMPRESSION: 1. No acute fracture or dislocation of cervical spine. 2. Partial visualization of the superior mediastinal and lower cervical adenopathy. CT ABD & PELVIS W/O IV CONTRAS IMPRESSION: 1. Obese body habitus and chronic hepatosplenomegaly. 2. Fat-containing midline hernia in the umbilical region is unchanged compared to 11/21/2015. 3. Diverticulosis of the sigmoid colon without diverticulitis. 4. No acute fractures or traumatic subluxations within the chronically degenerated lumbar spine. Assessment/Plan Assessment: 76 year old woman with multiple medical problems seen for evaluation of a mechanical fall and recent upper respiratory infection. Specific information is difficult to obtain secondary to patients clinical condition, however she comments that her was sick recently with upper respiratory symptoms for whichs she also has developed since the middle of the past week. Patient reported received a Z-pack from her epilepsy physician Dr. Haley for persistent upper respiratory symptoms on 08/06/16 for which she only took two doses. Vital signs on admission demonstrate temp 97.0-97.3, HR 72-90, RR 18-22, BP 107- 164/50-82, O2 82-91% on 100% FiO2 via Venti mask. Physical examination is remarkable for an obese elderly woman appearing somnolent in moderate respiratory distress with minimal accessory muscle use for respiratory and an otherwise normal cariopulmonary/abdominal/neurologic examination. Lab work is significant for WBC 13.5. Serum chemistries are within normal limits. Lactic acid 0.8, Troponin 0.02. ABG pH 7.42 / CO2 41 / O2 52 / HCO3 26. Rapid flu negative. Multiple imaging studies are negative for any acute fracture or bleed. Patient has contrast allergy and is unable to have CTA. CT Chest without contrast is suggestive of a focal consolidation vs atelectasis and comments on a dilated pulmonary artery possibly suggestive of her previously known pulmonary hypertension. Given the limited information assessed from patient in regards to history of present illness and mechanism of injury it is unclear of the etiology of patients persistent acute onset shortness of breath and hypoxia. Differential diagnoses include pneumonia, pulmonary embolism, diagphragm injury. Patient is given respiratory support and admitted to the telemetry floor for continuous pulse oximetry and further care. Acute Hypoxic Respiratory Failure / Possible Community Acquired Pneumonia Recent URI with failed outpatient failed on Azithromycin. Patient of Dr. Haley. Acute onset hypoxia in the setting of trauma. Rapid flu negative. CT chest suggestion of consolidation versus atelectasis. -Telemetry, continuous pulse oximetry -TRC with albuterol/ipratropium as needed -Supplemental O2 as needed, goal >92% -NS @ 75mL/hr -Ceftriaxone 1g IV Daily -Azithromycin 500mg IV Daily -Pulm consult in AM -F/U Blood/Urine Cultures -F/U Strep/Legionella Antigen Mechanical Fall Patient is dependent upon a wheelchair at home for ambulation and is able only to perform transfers. She otherwise states she is able to complete all other activities of daily living. Multiple imaging studies on admission were negative for acute fracture or bleed. -PT evaluation History of Multiple Sclerosis Patient of Dr. Lewis. 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 Acute respiratory failure with hypoxia Core Measures/Miscellaneous Acute Coronary Syndrome ACS Diagnosis: No Cerebrovascular Accident CVA/TIA Diagnosis: No Congestive Heart Failure CHF Diagnosis: No Venous Thromboembolism VTE Risk Factors: Acute medical illness, Age > 40, Immobility, paresis, Obesity No [facility] VTE prophylaxis d/t: No contraindications No VTE Pharm Prophylaxis d/t: No contraindications VTE Diagnosis: No VTE Type: NONE VTE Confirmed by (Test): NONE Severe Sepsis Severe Sepsis Present: No Septic Shock Septic Shock Present: No Miscellaneous Documentation Attending Case Discussed With: ANGELITA MOSELEY MD Primary Care Physician: MICHI SRIVASTAVA MD Patient sees these Specialists Dr. Debbie Haley Level of Patient Care: Telemetry Consults Needed: Consulting Specialty: Pulmonary Disease TORSTEN WANG 08/08/16 0425: Resident Review Statement Resident Statement: examined this patient, discussed with internal grinder, agreed with internal grinder, reviewed images, amended to note Other Findings: 76-year-old lady with past medical history of MS since 1970s, oxygen dependent. # liter duriong the day and 4 L on CPAP at night ,diabetes?, Hyperlipidemia, anxiety depression, chronic leg swelling, obesity, wheelchair bound brought by ambulance to hospital with chief complaint of fall. Patient reported that she was not feeling good for at least couple of days and his started having dry coughing, generalized weakness, sneezing. On Tuesday she called Rolando Haley MD and started taking azithromycin only for 1 dose. However today when she was transferring from toilet to her electric chair her knees collapsed and she fell on the floor, and was found by her . She denied any loss of consciousness, palpitation, headache before or after the fall. Patient does report of double vision and blurry vision, constipation, urinary retention which the latter 2 are chronic. Patient denies any fevers or chills however she reports the had URI recently. Patient denies any chest pain or palpitation, but does report a pain in her right hip and right shoulder after the fall. Vital signs on arrival is notable for hypoxia which required to put the patient on nonrebreather for obtaining the O2 saturation over 92%. She has chronic weakness on the legs however she is unable to do her cooking and dressing and she take a shower. During the H&P patient was very somnolent however she was easily arousable and able to answer to questions. Patient received 4 mg of morphine in the ED before the examination. Physical exam recorded above and is notable for dry mucosa, decreased breath sound bilaterally, bilateral leg edema with skin changes. bilateral medial knee effusions without redness noted. patient had mild bilateral tenderness on both knee caps ABG was notable low PO2 of 52, however PCO2 and pH are within normal limits WC 13.5 87.4% granulocytes troponin and lactic acid were within normal limits Notable imaging of the shoulder, right lower extremity, chest, abdomen did not show any fracture however it did show consolidation in the Which can be atelectasis versus pneumonia. Assessment and plan #Hypoxia due to Community-acquired pneumonia * Admit to telemetry for oxygen saturation monitoring * Vital signs per shift * Keep O2 saturation over 92% * Put the patient on IV ceftriaxone and IV azithromycin * Blood cultures 2, sputum culture * Rapid flu was negative * Check urine Legionella and strep antigen * Continue CPAP at night * PULM consult in the morning * CBC and BMP in the morning * If Patient condition did not improve within 24-48 hours other causes such as PE should be ruled out * [facility] nebs #Multiple sclerosis/Urinary retention/-constipation Hospital did not have Copaxone. Please assess the patient to call her to bring Copaxone for Tuesday injections. -Place Gallego catheter and check UA and UC -Continue baclofen -Aggressive bowel regimen #Fall -PT evaluation -Tylenol and tramadol for pain #Hypertension -Hold Aldactone, Lasix, Cardura #Diabetes? (Patient says she is prediabetic) -Hold metformin and trajenta -Accu checks, sliding scale insulin, diabetic diet #Hypothyroidism/hyperLipidemia,/anxiety depression/GERD -Levothyroxine 75 MCG on Tuesday and Tuesday and 50 MCG on the rest of the week -Continue Zoloft, continue statin , -continued dexilant (replaced with omeprazole) DNR/DNI, Tylenol and tramadol for pain, diabetic diet, DVT prophylaxis is Lovenox which patient was already on at home and a LPS PRADIP DARNELL, [facility] 08/08/16 0518: Attending MD Review Statement Attending Statement Attending MD Statement: examined this patient, discuss w/resident/PA/HAND SOLE SEWER, agreed w/resident/PA/HAND SOLE SEWER Attending Assessment/Plan: 76 yo morbidly obese F with h/o advanced multiple sclerosis on Copaxone, severe VALARIE on CPAP (4L O2), pulmonary hypertension, chronic respiratory failure on 3L O2, HTN, T2DM (last A1c 5.3 Feb 2016), is brought for evaluation of right hip / shoulder pain s/p mechanical fall while trying to transfer herself from toilet seat back to the wheelchair. She denies LOC or head strike. At baseline, she is wheelchair bound, but is able to transfer herself without assistance. Of note, she has not been feeling well for past few days with URI/ flu like symptoms. Sick contact + (), no recent travel. She received flu shot. She got a prescription of Zpak from Dr. Haley for possible bronchitis/ pneumonia, of which she took the first dose last night. Dry cough+, urinary retention, no dysuria. On ER arrival, patient was hypoxic to 83% on 4L --> 91% on 100% VM, afebrile, HR 60-70's, BP 107/50. On our evaluation, patient was very lethargic, but arousable and able to answer questions appropriately. Dry mucous membranes. Chest: b/l clear anteriorly, reduced breath sounds at bases, Heart S1S2 regular, Abd soft, NT. Extremities: contracted, with chronic venous stasis, trace edema+. Labs: WBC 13.5, BUN 29, glucose 105, lactic acid 0.8, trop neg. AB.42/41/52/ 26. Flu swab negative. CT abd/pelvis: chronic hepatosplenomegaly, umbilical hernia. CT cervical spine: neg. Left shoulder: no fracture, partial visualization of left pulmonary opacity. CT LE: no acute injury, tricompartmental osteoarthritis and effusions of both knees (R>L). CXR: cardiomegaly, chronic pulmonary arterial hypertension. CT chest: opacity left UL and bilateral lower lobes ?atelectasis vs. Consolidation. RUL nodule and mediastinal LN - no change. Cardiomegaly. Echo ( 2015): EF 65-70%. 1. Acute on chronic hypoxemic respiratory failure 2/2 possible CAP vs. ? aspiration, and sleep apnea/ severe pulmonary hypertension. Tele admit for continuous pulse oximetry for 24 hours until improvement, TRC nebs, IST, panculture, IV ceftriaxone and azithro, NPO for now, IV fluids, Pulm consult. Continue CPAP at night. PE is a possibility in this elderly obese wheelchair bound lady, we had planned CTA chest however patient is allergic to contrast dye. Hence, held off and did a plain CT chest to evaluate pneumonia. If inspite of antibiotics, patient's respiratory status does not improve, would consider V/ Q scan to rule out PE. Of note, patient has been on lovenox for DVT prevention at home. 2. Multiple sclerosis last exacerbation 1 year ago. c/o urinary retention which is chronic, place Gallego and check urinalysis to rule out UTI. Treat constipation. Continue baclofen and copaxone. 3. Physical deconditioning, mechanical fall. Place on fall precautions, obtain PT eval and possible placement. Pain management with Tylenol, avoid sedative meds. 4. T2DM. Need to confirm if patient is taking metformin and tradjenta, as last A1c was normal. Place on accucheks, novolog low dose SS. 5. Chronic b/l knee pain 2/2 severe OA with effusions. No concern for septic arthritis. Pain management. DVT ppx Lovenox. DNR/I.
--- NOTE | 2016-08-08 03:26 | CT SCAN REPORT ---
EXAMINATION: CT CHEST WITHOUT CONTRAST CLINICAL INFORMATION: Hypoxia, cardiomegaly, elevated white blood cell count COMPARISON: Chest x-ray 08/07/2016, CT 02/06/2016 TECHNIQUE: Multidetector volumetric CT imaging of the chest was done. Axial MIP volume rendering provided. Sagittal and coronal reformatted images were obtained. DLP: 1089.35 mGy-cm FINDINGS: LUNGS: There are regions of predominantly curvilinear opacity in the left upper lobe and bilateral lower lobes, favoring predominantly atelectasis. There is a 3 mm right upper lobe nodule posteriorly on image 17/73, unchanged from prior. MEDIASTINUM: The visualized thyroid gland is unremarkable. Multiple scattered mediastinal lymph nodes are seen, measuring up to 1.1 cm in size anterior to the suman, similar to prior. There is mild cardiomegaly. Trace pericardial effusion is noted. Scattered atherosclerotic calcifications are present. Coronary artery calcifications are present. The main pulmonary artery is dilated to approximately 3.5 cm, suspicious for pulmonary artery hypertension. PLEURA: Trace pleural effusions are difficult to entirely exclude. No pneumothorax. AXILLA: No lymphadenopathy. UPPER ABDOMEN: Stable small left adrenal nodule is again seen, statistically likely an adenoma. OSSEOUS STRUCTURES: Degenerative changes are noted in the spine. IMPRESSION: 1. Regions of opacity in the left upper lobe and bilateral lower lobes which are mostly curvilinear in nature, favoring that this at least mostly represents atelectasis. A component of superimposed consolidation would be difficult to exclude in the proper clinical setting. 2. Multiple scattered mediastinal lymph nodes, the largest of which is mildly enlarged anterior to the suman; appearance is similar to prior. 3. Cardiomegaly and trace pericardial effusion. 4. Dilated main pulmonary artery, suspicious for pulmonary artery hypertension.
[2016-08-08] MEDS ORDERED: LOVENOX40 MG/0.1 SC (03:30)
[2016-08-08] MEDS ORDERED: PROAIR HFA8.5 GM INH (03:31)
--- NOTE | 2016-08-08 03:35 | NUR ---
REPORT GIVEN TO ROSALINDA SCHAFFER.
[2016-08-08] MEDS ORDERED: ALDACTONE25 MG PO (03:38)
[2016-08-08] MEDS ORDERED: MIRALAX17 G1 PO (03:54)
--- NOTE | 2016-08-08 03:54 | Admission Certification ---
Admission Certification Certification Statement - As attending physician, I certify that at the time of - admission, based on clinical presentation, severity of - symptoms, need for further diagnostic testing and - therapeutic interventions, and risk of adverse outcomes - without in-hospital treatment, in my clinical assessment, - this patient requires an acute hospital stay for a minimum - of two nights or longer. I have also considered psychsocial - factors such as support system, advanced age, financial - issues, cognitive issues, and failed out-patient treatments, - past re-admission history, safety of patient, and lack of - compliance as applicable. Specific rationale supporting this admission is: Acute on chronic hypoxemic respiratory failure, community acquired pneumonia. Mechanical fall, needs PT and possible placement.
[2016-08-08] MEDS ORDERED: CARDURA8 M1 PO (03:59)
[2016-08-08 04:00] VITALS: BP 90/48
[2016-08-08 04:45] VITALS: BP 108/58
[2016-08-08 07:50] VITALS: BP 94/58
[2016-08-08 10:00] VITALS: BP 102/64
--- NOTE | 2016-08-08 10:29 | Cons- Pulmonary ---
General Information and HPI Consulting Request Date of Consult: 08/08/16 Requested By: augustina Reason for Consult: Hypoxic respiratory failure History of Present Illness: Is a 76-year-old with advanced MS severe VALARIE on ASV chronic hypoxia pulmonary hypertension admitted after a fall and inability to return to her wheelchair. She was found to be hypoxic she was unable to have a CTA noncontrast CT of the chest showed multifocal infiltrates. In view of leukocytosis she was started on antibiotics for community acquired pneumonia. There is no evidence of hypercarbia. Patient is comfortable on high flow nasal oxygen. She denies chest pain or hemoptysis. She is for the most part immobile secondary to advanced MS Allergies/Medications Allergies: Coded Allergies: hydrochlorothiazide (From AVALIDE) (Intermediate, HEART RACE 11/20/15) irbesartan (From AVALIDE) (Intermediate, HEART RACE 11/20/15) adhesive (SKIN COMES OFF 11/20/15) mold (UNKNOWN 11/20/15) penicillin V (UNKNOWN 11/20/15) Gadolinium-Containing Contrast Medi (SYNCOPE FROM IV CONTRAST 11/20/15) Iodinated Contrast Media - Oral and (IODINATED CONTRAST MEDIA - IV DYE) (SYNCOPE FROM IV CONTRAST 11/20/15) Home Med List: Albuterol Sulfate (Proair Hfa) 90 MCG HFA.AER.AD 2 PUF INH Q4-6 PRN PRN sob ( Reported) Atorvastatin Calcium 10 MG TABLET 1 TAB PO 1700 cholesdtrol (Reported) Baclofen (Lioresal) 10 MG TABLET 30 MG PO 5XDAILY MUSCLE SPASMS (Reported) Bisacodyl (Dulcolax) 5 MG TABLET.DR 1 TAB PO AD PRN consti[ation (Reported) CETIRIZINE HCL (Zyrtec) 10 MG CAPSULE 1 CAP PO PRN ALLERGIES (Reported) Cranberry Extract (Ellura) 200 MG CAPSULE 1 CAP PO DAILY SUPPLEMENT (Reported ) Dexlansoprazole (Dexilant) 60 MG CAP.DR.BP 1 CAP PO DAILY GI (Reported) Diazepam (Valium) 5 MG TABLET 1 TAB PO PRN MUSCLE SPASMS (Reported) Docusate Sodium 250 MG CAPSULE 2 SGL PO DAILY STOOL SOFTENER (Reported) Doxazosin Mesylate (Cardura) 8 MG TABLET 1 TAB PO AT BEDTIME HTN (Reported) Enoxaparin Sodium (Lovenox) 40 MG/0.4 ML SYRINGE 0.4 ML SC DAILY dvt prophlyasix (Reported) Fexofenadine Hydrochloride (Ni) 180 MG TAB 1 TAB PO PRN ALLERGIES ( Reported) Furosemide 40 MG TABLET 1 TAB PO DAILY legs (Reported) Glatiramer Acetate (Copaxone) 40 MG/ML SYRINGE 40 MG SC SEE ADMIN CRITERIA MS (Reported) TUES, THURS SAT Levothyroxine Sodium (Synthroid) 50 MCG TABLET 1 TAB PO SEE ADMIN CRITERIA thyoird (Reported) 50 mcg in 5 days per week 75 mcg in 2 days per week Linagliptin (Tradjenta) 5 MG TABLET 1 TAB PO DAILY DIABETES (Reported) Metformin Hydrochloride (Metformin ER) [address] 1 TAB PO DAILY DIABETES ( Reported) Naproxen Sodium (Aleve) 220 MG TABLET 2 TAB PO PRN PAIN (Reported) Polyethylene Glycol 3350 (Miralax) 17 GRAM POWD.PACK 1 PAC PO DAILY condit[ tion (Reported) dissolve in water Psyllium Hydrophylic Muciloid (Metamucil Packet) 3.4 GRAM POWD.PACK 2 TSP PO BID GI (Reported) Sertraline HCl (Zoloft) 50 MG TABLET 1 TAB PO DAILY memtal heaklth (Reported) Spironolactone (Aldactone) 25 MG TABLET 0 PO SEE ADMIN CRITERIA druetic ( Reported) 25 in the AM 12.5 in the evening TIZANIDINE HCL (Tizanidine HCl) 2 MG TAB 1 TAB PO PRN MUSCLE SPASMS (Reported ) Review of Systems Review of Systems Constitutional: Denies: chills, fever. Cardiovascular: Reports: edema. Denies: chest pain. Respiratory: Reports: cough, short of breath, sputum production, wheezing. Denies: hemoptysis. GI: Denies: abdominal pain, diarrhea, melena. Past History Travel History Traveled to [place] past 21 day No Medical History Blood Transfusion Hx: No Neurological: multiple sclerosis EENT: NONE Cardiovascular: hypertension, hyperlipidemia Respiratory: obstructive sleep apnea, pulmonary hypertension, 4LNC DEPENDENT Gastrointestinal: umbilical hernia Hepatic: NONE Renal: NONE Musculoskeletal: chronic back pain Psychiatric: NONE Endocrine: hyperthyroidism Blood Disorders: NONE Cancer(s): NONE CONTROL CENTER OPERATOR/Reproductive: NONE Surgical History Surgical History: non-contributory Family History Relations & Conditions If Any: BROTHER (OLDER BROTHER: [place], STROKE, CAD, PVD). MOTHER (BREAST CA). FATHER ([place], RENAL FAILURE). SISTER Relation not specified for: FH: diabetes mellitus Psychosocial History Where Do You Live? Home Services at Home: None, Oxygen, Physical Therapy Smoking Status: Former Smoker ETOH Use: denies use Illicit Drug Use: denies illicit drug use Exam & Diagnostic Data Last 24 Hrs of Vital Signs/I&O Vital Signs Date Time Temp Pulse Resp B/P Pulse O2 O2 Flow FiO2 Ox Delivery Rate 08/08 0750 98.0 90 20 94/58 94 BIPAP 08/08 0536 94 BIPAP 08/08 0451 94 Part 60% ReBreather 08/08 444 98.0 63 18 108/58 91 08/08 0400 97.2 65 20 90/48 94 CPAP 08/08 0256 97.3 72 18 107/50 91 Venti Mask 100% 08/071 82 Nasal 4.5L Cannula 08/07 2017 97.0 90 22 164/82 83 Nasal 4.0L Cannula Intake & Output 08/08 1600 08/08 0800 08/08 0000 Intake Total 390 Output Total 400 Balance -10 Intake, IV 150 Intake, Oral 240 Output, Urine 400 Patient 220 lb 210 lb Weight Oxygen saturation FiO2 60% is 94% exam for chest shows diminished breath sounds occasional crackles there are no wheezes cardiac exam shows a regular S1 and S2 without murmurs abdominal exam is soft nontender she has chronic lower extremity edema 1-2+ which is symmetrical Last 48 Hrs of Labs/Kulwinder: Laboratory Tests 08/08/16 0440: Urinalysis LIGHT H, Urine Color YEL, Urine Clarity CLDY H, Urine pH 6.0, Ur Specific [place] 1.015, Urine Protein NEG, Urine Ketones NEG, Urine Nitrite NEG, Urine Bilirubin NEG, Urine Urobilinogen 0.2, Ur Leukocyte Esterase LARGE H, Ur Microscopic SEDIMENT EXAMINED, Urine RBC 3-5, Urine WBC 25-50 H, Ur Epithelial Cells FEW, Urine Bacteria MANY H, Urine Mucus FEW, Urine Hemoglobin TRACE- INTACT, Urine Glucose NEG 08/08/16 0020: pH 7.42, pCO2 41, pO2 52 L, HCO3 26, ABG O2 Sat (Measured) 86.0 L, P-50 (Temp Corrected) Y, Carboxyhemoglobin 1.0 L, O2 Concentration % 60%, Temperature 97.0 , O2 Delivery Method PRB, Phlebotomy Draw Site RIGHT RADIAL 08/08/16 0015: Lactic Acid 0.8 08/08/16 0015: Anion Gap 10, Estimated GFR > 60, BUN/Creatinine Ratio 36.3 H, Glucose 105 H, Calcium 9.4, Total Bilirubin 0.9, AST 17, ALT 27, Alkaline Phosphatase 74, Troponin I 0.02, Total Protein 6.4, Albumin 3.7, Globulin 2.7, Albumin/Globulin Ratio 1.4, CBC w Diff NO MAN DIFF REQ, RBC 4.64, MCV 84.5, MCH 28.1, RDW 17.3 H , MPV 8.7, Gran % 87.4 H, Lymphocytes % 7.6 L, Monocytes % 3.8, Eosinophils % 0.8, Basophils % 0.4, Absolute Granulocytes 11.8 H, Absolute Lymphocytes 1.0 L , Absolute Monocytes 0.5, Absolute Eosinophils 0.1, Absolute Basophils 0.1, PUBS MCHC 33.2 08/07/16 2358: Troponin I Cancelled Microbiology 08/09 439 URINE ROUT: Legionella Antigen - COMP 08/09 439 URINE ROUT: Streptococcus pneumoniae Antigen (M - COMP 08/08 0325 NASOPHARYN: Influenza Virus A & B Rapid Smear - COMP Assessment/Plan Impression/Plan: 76-year-old woman with advanced MS essentially immobile chronic pulmonary hypertension moderate COPD admitted after a fall and found to have leukocytosis and acute on chronic hypoxic history failure. The etiology may be coming acquired pneumonia though her immobility raises the spectrum of possible thromboembolic disease. Recommendations: Obtain d-dimer. Consider lower extremity ultrasound. Continue antibiotics. Avoid narcotics. Fully culture sputum C&S. Obtain quick flu. If D-dimer is elevated and lower extremity Doppler ultrasound negative consider VQ scan tomorrow as patient is unable to have contrast. DVT prophylaxis. Obtain CPK in view of history of fall. Dr. Haley will follow the patient tomorrow. Consult Acknowledgment - Thank you for your consult request.
--- NOTE | 2016-08-08 15:42 | Cons- Cardiology ---
General Information and HPI Consulting Request Date of Consult: 08/08/16 Requested By: PRADIP DARNELL,RAGHAVENDRAChanning Source of Information: patient, family, old records Exam Limitations: no limitations History of Present Illness: 76 year old woman with multiple medical problems significant for multiple sclerosis brought in by ambulance for evaluation after sustaining a mechanical fall. She was somnolent and lethargic on arrival. She was using the toilet when she went to transfer back to the wheelchair when she accidentally slipped. She reports falling and striking her right side of her body without headstrike. She reports losing consciousness and does not recall how long she was unconscious. The fall was not witnessed and she denies becoming incontinent of urine or stool during this event. Today she is feeling a bit better. She denies any cardiovascular symptoms at the time of the event. She denies any LOC. Allergies/Medications Allergies: Coded Allergies: hydrochlorothiazide (From AVALIDE) (Intermediate, HEART RACE 11/20/15) irbesartan (From AVALIDE) (Intermediate, HEART RACE 11/20/15) adhesive (SKIN COMES OFF 11/20/15) mold (UNKNOWN 11/20/15) penicillin V (UNKNOWN 11/20/15) Gadolinium-Containing Contrast Medi (SYNCOPE FROM IV CONTRAST 11/20/15) Iodinated Contrast Media - Oral and (IODINATED CONTRAST MEDIA - IV DYE) (SYNCOPE FROM IV CONTRAST 11/20/15) Home Med List: Albuterol Sulfate (Proair Hfa) 90 MCG HFA.AER.AD 2 PUF INH Q4-6 PRN PRN sob ( Reported) Atorvastatin Calcium 10 MG TABLET 1 TAB PO 1700 cholesdtrol (Reported) Baclofen 10 MG TABLET 3 TAB PO 5XDAILY MUSCLE SPASMS (Reported) Bisacodyl (Dulcolax) 5 MG TABLET.DR 1 TAB PO AD PRN consti[ation (Reported) Cetirizine HCl (Zyrtec) 10 MG TABLET 1 TAB PO DAILY PRN ALLERGIES (Reported) Cranberry Extract (Ellura) 200 MG CAPSULE 1 CAP PO DAILY SUPPLEMENT (Reported ) Dexlansoprazole (Dexilant) 60 MG CAP.DR.BP 1 CAP PO DAILY GI (Reported) Diazepam (Valium) 5 MG TABLET 1 TAB PO PRN MUSCLE SPASMS (Reported) Docusate Sodium 250 MG CAPSULE 2 CAP PO DAILY STOOL SOFTENER (Reported) Doxazosin Mesylate (Cardura) 8 MG TABLET 1 TAB PO QPM HTN (Reported) Enoxaparin Sodium (Lovenox) 40 MG/0.4 ML SYRINGE 0.4 ML SC DAILY dvt prophlyasix (Reported) Fexofenadine HCl (Ni Allergy) 180 MG TABLET 1 TAB PO DAILY PRN ALLERGIES (Reported) Furosemide 40 MG TABLET 1 TAB PO DAILY legs (Reported) Glatiramer Acetate (Copaxone) 40 MG/ML SYRINGE 40 MG SC SEE ADMIN CRITERIA MS (Reported) TUES, THURS SAT Levothyroxine Sodium (Synthroid) 50 MCG TABLET 1 TAB PO SEE ADMIN CRITERIA thyoird (Reported) 50 mcg in 5 days per week 75 mcg in 2 days per week Linagliptin (Tradjenta) 5 MG TABLET 1 TAB PO DAILY DIABETES (Reported) Metformin HCl 500 MG TABLET 1 TAB PO DAILY DIABETES (Reported) Naproxen Sodium (Aleve) 220 MG TABLET 2 TAB PO PRN PAIN (Reported) Polyethylene Glycol 3350 (Miralax) 17 GRAM POWD.PACK 1 PAC PO DAILY condit[ tion (Reported) dissolve in water Psyllium Hydrophylic Muciloid (Metamucil Packet) 3.4 GRAM POWD.PACK 2 TSP PO BID GI (Reported) Sertraline HCl (Zoloft) 50 MG TABLET 1 TAB PO DAILY memtal heaklth (Reported) Spironolactone (Aldactone) 25 MG TABLET 0 PO SEE ADMIN CRITERIA druetic ( Reported) 25 in the AM 12.5 in the evening Tizanidine HCl 2 MG TABLET 1 TAB PO PRN MUSCLE SPASMS (Reported) Current Medications: Current Medications Sig/Tash Start time Last Medication Dose Route Stop Time Status Admin Acetaminophen 1,000 MG ONCE ONE 08/08 0630 DC 08/08 N/A 1 UNIT IV 08/08 06 0630 Acetaminophen 650 MG Q6 PRN 08/08 0245 AC PO Albuterol Sulfate 3 ML EVERY 4 HRS/AWAKE 08/08 1600 AC 08/08 INH 1350 Atorvastatin Calcium 10 MG 1700 08/08 1700 AC PO Azithromycin 500 MG DAILY 08/08 0400 AC 08/08 Dextrose/Water 250 ML IV 0459 Baclofen 30 MG 5 TIMES A DAY 08/08 1400 AC 08/08 PO 1412 Baclofen 20 MG Q6 08/08 1200 DC 08/08 PO 1120 Baclofen 30 MG .[5XDAILY] 08/08 0330 DC PO Baclofen 30 MG ONCE ONE 08/08 0045 DC PO 08/08 0046 Ceftriaxone Sodium 1,000 MG 0600 08/08 0600 AC 08/08 IV 0607 Diazepam 5 MG DAILY PRN 08/08 0330 AC 08/08 PO 0606 Enoxaparin Sodium 40 MG DAILY 08/08 1000 AC 08/08 SC 1000 Insulin Aspart 0 TIDAC 08/08 0800 AC SC Levothyroxine Sodium 0.05 MG DAILY AC 08/08 0700 CAN PO Levothyroxine Sodium 0.05 MG DAILY AC 08/08 0700 AC 08/08 PO 0606 Morphine Sulfate 0 .STK-MED ONE 08/07 2102 DC .ROUTE Morphine Sulfate 4 MG ONCE ONE 08/07 2044 DC 08/07 SC 08/07 Omeprazole 40 MG DAILY AC 08/08 0700 AC 08/08 PO 0606 Senna/Docusate Sodium 1 TAB BID PRN 08/08 0330 AC PO Sertraline HCl 50 MG DAILY 08/08 1000 AC 08/08 PO 1000 Sodium Chloride 1,000 ML Q13H 08/08 0330 AC 08/08 IV 08/08 1629 0442 Tramadol HCl 50 MG Q6 PRN 08/08 0400 AC 08/08 PO 0451 Past History Travel History Traveled to [place] past 21 day No Medical History Blood Transfusion Hx: No Neurological: multiple sclerosis EENT: NONE Cardiovascular: hypertension, hyperlipidemia Respiratory: obstructive sleep apnea, pulmonary hypertension, 4LNC DEPENDENT Gastrointestinal: umbilical hernia Hepatic: NONE Renal: NONE Musculoskeletal: chronic back pain Psychiatric: NONE Endocrine: hyperthyroidism Blood Disorders: NONE 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 MOTHER (BREAST CA). FATHER ([place], RENAL FAILURE). SISTER Relation not specified for: FH: diabetes mellitus Psychosocial History Where Do You Live? Home Services at Home: None, Oxygen, Physical Therapy Smoking Status: Former Smoker ETOH Use: denies use Illicit Drug Use: denies illicit drug use Exam & Diagnostic Data Vital Signs and I&O Vital Signs Date Time Temp Pulse Resp B/P Pulse O2 O2 Flow FiO2 Ox Delivery Rate 03/05 1438 Nasal 60% Cannula 08/08 1000 60 102/64 08/08 0800 CPAP 08/08 0750 98.0 90 20 94/58 94 BIPAP 08/08 0536 94 BIPAP 08/08 0451 94 Part 60% ReBreather 08/08 0445 98.0 63 18 108/58 91 /05 0400 97.2 65 20 90/48 94 CPAP 08/08 0256 97.3 72 18 107/50 91 Venti Mask 100% 08/07 2100 82 Nasal 4.5L Cannula 08/07 2017 97.0 90 22 164/82 83 Nasal 4.0L Cannula Intake & Output 08/08 0808/08 0000 08/07 1600 08/07 0808/07 0000 Intake Total 1160 390 Output Total 250 400 Balance 910 -10 Intake, IV 600 150 Intake, Oral 560 240 Output, Urine 250 400 Patient 220 lb 210 lb Weight Physical Exam: General Appearance Mild Distress, Somnolent/Lethargic Skin No Rashes, No Breakdown, No Significant Lesion, Chronic lower extremity skin changes HEENT Atraumatic, Dry mucous membranes, PERRL Neck Supple, No JVD, Nontender, carotids normal Cardiovascular Regular Rate, Normal S1, Normal S2, distant, 1/6 systolic murmur Lungs diminished breath sounds bilaterally without any wheezing, rhonchi, or crackles Abdomen Normal Bowel Sounds, Soft, No Tenderness, No Hepatospenomegaly, No Masses, Obese Neurological Sensation Intact, Slow speech Extremities No Clubbing, No Cyanosis, Normal Pulses Vascular Normal Pulses, Pulses Symmetrical Labs/Kulwinder Results: Laboratory Tests 08/08 08/08 1200 0440 Chemistry Creatine Kinase (30 - 135 U/L) 216 H Coagulation D-Dimer (70 - 232 ng/ml) 439 H Urines Urinalysis LIGHT H Urine Color (YEL,AMB,STR) YEL Urine Clarity (CLEAR) CLDY H Urine pH (5.0 - 8.0) 6.0 Ur Specific [place] (1.001 - 1.035) 1.015 Urine Protein (NEG,<30 MG/DL) NEG Urine Ketones (NEG) NEG Urine Nitrite (NEG) NEG Urine Bilirubin (NEG) NEG Urine Urobilinogen (0.1 - 1.0 EU/dl) 0.2 Ur Leukocyte Esterase (NEG) LARGE H Ur Microscopic SEDIMENT EXAMINED Urine RBC (0 - 5 /HPF) 3-5 Urine WBC (0 - 2 /HPF) 25-50 H Ur Epithelial Cells (NONE,FEW) FEW Urine Bacteria (NEG/NONE) MANY H Urine Mucus (FEW,NONE) FEW Urine Hemoglobin (NEG) TRACE-INTACT Urine Glucose (N MG/DL) NEG 08/08 08/08 08/08 0020 0015 0015 Blood Gas pH (7.35 - 7.45 PH) 7.42 pCO2 (35 - 45 TORR) 41 pO2 (80 - 100 TORR) 52 L HCO3 (21 - 28 MEQ/L) 26 ABG O2 Sat (Measured) (>96.0 %) 86.0 L P-50 (Temp Corrected) Y Carboxyhemoglobin (1.5 - 5.0 %) 1.0 L O2 Concentration % 60% Temperature (97.0 - 100.0 FARH) 97.0 O2 Delivery Method PRB Chemistry Sodium (137 - 145 mmol/L) 138 Potassium (3.5 - 5.1 mmol/L) 5.0 Chloride (98 - 107 mmol/L) 101 Carbon Dioxide (22 - 30 mmol/L) 27 Anion Gap (5 - 16) 10 BUN (7 - 17 mg/dL) 29 H Creatinine (0.5 - 1.0 mg/dL) 0.8 Estimated GFR (>60 ml/min) > 60 BUN/Creatinine Ratio (7 - 25 %) 36.3 H Glucose (65 - 99 mg/dL) 105 H Lactic Acid (0.7 - 2.1 mmol/L) 0.8 Calcium (8.4 - 10.2 mg/dL) 9.4 Total Bilirubin (0.2 - 1.3 mg/dL) 0.9 AST (14 - 36 U/L) 17 ALT (9 - 52 U/L) 27 Alkaline Phosphatase (<127 U/L) 74 Troponin I (< 0.11 ng/ml) 0.02 Total Protein (6.3 - 8.2 g/dL) 6.4 Albumin (3.5 - 5.0 g/dL) 3.7 Globulin (1.9 - 4.2 gm/dL) 2.7 Albumin/Globulin Ratio (1.1 - 2.2 %) 1.4 Hematology CBC w Diff NO MAN DIFF REQ WBC (4.8 - 10.8 /CUMM) 13.5 H RBC (4.20 - 5.40 /CUMM) 4.64 Hgb (12.0 - 16.0 G/DL) 13.0 Hct (37 - 47 %) 39.2 MCV (81.0 - 99.0 FL) 84.5 MCH (27.0 - 31.0 PG) 28.1 RDW (11.5 - 14.5 %) 17.3 H Plt Count (130 - 400 /CUMM) 200 MPV (7.4 - 10.4 FL) 8.7 Gran % (42.2 - 75.2 %) 87.4 H Lymphocytes % (20.5 - 51.1 %) 7.6 L Monocytes % (1.7 - 9.3 %) 3.8 Eosinophils % (0 - 5 %) 0.8 Basophils % (0.0 - 2.0 %) 0.4 Absolute Granulocytes (1.4 - 6.5 /CUMM) 11.8 H Absolute Lymphocytes (1.2 - 3.4 /CUMM) 1.0 L Absolute Monocytes (0.10 - 0.60 /CUMM) 0.5 Absolute Eosinophils (0.0 - 0.7 /CUMM) 0.1 Absolute Basophils (0.0 - 0.2 /CUMM) 0.1 PUBS MCHC (33.0 - 37.0 G/DL) 33.2 Miscellaneous Phlebotomy Draw Site RIGHT RADIAL 08/07 2358 Chemistry Troponin I Cancelled Diagnostic Data CXR Results FINDINGS: Obese body habitus. The patient is slightly rotated to the left. Cardiac silhouette and pulmonary arteries are chronically enlarged. The opacity observed on the left shoulder radiographs appears to correspond to enlarged vessels at the left hilum. Thoracic aorta is calcified. The left lower lobe is suboptimally evaluated due to the patient's body habitus and rotation. However, there is overt pulmonary consolidation. No pulmonary edema or pleural effusion. The visualized bones of the thorax are intact. IMPRESSION: 1. Cardiomegaly. 2. Pulmonary arteries are chronically enlarged, consistent with pulmonary arterial hypertension. Other Results CT chest: IMPRESSION: 1. Regions of opacity in the left upper lobe and bilateral lower lobes which are mostly curvilinear in nature, favoring that this at least mostly represents atelectasis. A component of superimposed consolidation would be difficult to exclude in the proper clinical setting. 2. Multiple scattered mediastinal lymph nodes, the largest of which is mildly enlarged anterior to the suman; appearance is similar to prior. 3. Cardiomegaly and trace pericardial effusion. 4. Dilated main pulmonary artery, suspicious for pulmonary artery hypertension. Assessment/Plan Assessment/Plan Assessment: 1. Probable mechanical fall 2. Hypoxic respiratory failure with probable pneumonia 3. Multiple sclerosis with exacerbation. 4. History of severe pulmonary hypertension. 5. VALARIE 6. History of HTN 7. History of DM Recommendations: - At the present time I see no evidence of any acute cardiac issues. - Continue current management as per the medical and Pulmonary seervices - No need to repeat echocardiogram at the present time - Cardiology will follow along as needed. Consult Acknowledgment - Thank you for your consult request.
[2016-08-08 16:13] VITALS: BP 110/66
--- NOTE | 2016-08-08 18:36 | ULTRASOUND REPORT ---
EXAMINATION: US TRIPLEX LOWER EXTREMITY, BILATERAL CLINICAL INFORMATION: Leg swelling. Evaluate for deep vein thrombosis. COMPARISON: None TECHNIQUE: Color-flow triplex imaging with spectral analysis and compression Doppler were performed on the bilateral lower extremities. The neurology technologist reports that this was a portable examination on a patient with large body habitus. The patient was unable to fully recline or move the legs into proper position. The technologist was unable to access the left popliteal fossa. FINDINGS: Color Doppler and grayscale images show normal, patent appearance of the common femoral veins, bilaterally. The superficial femoral vein is patent within the proximal, mid and distal thigh, bilaterally. The right popliteal vein is normal. The left popliteal vein could not be evaluated. Calf veins are suboptimally evaluated due to patient body habitus. On the color Doppler images, there is no gross evidence for calf vein thrombosis. No focal fluid collection. IMPRESSION: 1. No evidence of deep vein thrombosis in either thigh. 2. The right popliteal vein is normal. The left popliteal vein could not be evaluated due to limiting factors. 3. Calf veins are suboptimally evaluated due to patient body habitus.
[2016-08-08 23:45] VITALS: BP 118/50
--- NOTE | 2016-08-09 06:58 | PN- Housestaff ---
See Addendum Subjective Follow-up For: Acute hypoxic respiratory failure Mechanical fall Atelectasis vs superimposed PNA MS with ambulatory dysfunction Urinary retention DM VALARIE on CPAP Tele-Events Since Last Visit: NSR HR 60s-70s, 4 am bradycardic to mid-50s. No overnight events. Subjective: Patient seen and examined at bedside this AM. She continues to endorse right nasal blockage and inability to get comfortable on the bed. She denies chest pain. She admits to dyspnea, cough and yellow sputum production. Review of Systems Constitutional: Denies: chills, fever. EENTM: Reports: nasal congestion. Denies: visual changes, hearing changes. Cardiovascular: Denies: chest pain, palpitations. Respiratory: Reports: cough, sputum production. Denies: stridor. Gastrointestinal: Denies: abdominal pain, nausea, vomiting. Genitourinary: Reports: hesitation (Requesting morris). Musculoskeletal: Reports: back pain, muscle stiffness, neck pain. Skin: Denies: rash. Neurological/Psychological: Denies: confusion, headache. Hematologic/Endocrine: Denies: polyuria, polydipsia. Immunologic/Allergic: Denies: splenectomy. Objective Last 24 Hrs of Vital Signs/I&O Vital Signs Date Time Temp Pulse Resp B/P Pulse O2 O2 Flow FiO2 Ox Delivery Rate 08/09 0922 02 Nasal 60% Cannula 08/09 0915 98.0 64 20 122/62 96 BIPAP 08/09 0800 94 Nasal 60% Cannula 08/09 0500 90 BIPAP 10L 08/09 0000 BIPAP 8L 08/08 2345 98.0 70 20 118/50 90 Nasal Cannula 08/08 2339 94 Nasal 60% Cannula 08/08 2131 Nasal Cannula 08/08 1613 98.1 63 18 110/66 94 08/08 1600 Nasal 60% Cannula 08/08 1438 Nasal 60% Cannula Intake & Output 08/09 1600 08/09 0800 08/09 0000 Intake Total 350 650 Output Total 650 450 Balance -300 200 Intake, IV 0 0 Intake, Oral 350 650 Number 0 1 Bowel Movements Output, Urine 650 450 Physical Exam General Appearance: Alert, Oriented X3, Cooperative, No Acute Distress Skin: No Rashes, No Significant Lesion HEENT: Atraumatic, PERRLA, Mucous Membr. moist/pink Neck: Supple, No JVD Lymphatic: Cervical nl Cardiovascular: Regular Rate, Normal S1, Normal S2 Lungs: Decreased breath sounds bilaterally without overt wheezing or crackles Abdomen: Normal Bowel Sounds, Soft, Obese Neurological: Normal Speech, Normal Tone Extremities: No Clubbing, No Cyanosis, Chronic bilateral lower extremity edema Vascular: Pulses Symmetrical Current Medications: Current Medications Sig/Tash Start time Last Medication Dose Route Stop Time Status Admin Acetaminophen 650 MG Q6 PRN 08/08 0245 AC PO Albuterol Sulfate 3 ML EVERY 4 HRS/AWAKE 08/08 1600 AC 08/09 INH 0916 Atorvastatin Calcium 10 MG 1700 08/08 1700 AC 08/08 PO 1812 Azithromycin 500 MG DAILY 08/08 0400 AC 08/09 Dextrose/Water 250 ML IV 0954 Baclofen 30 MG 0800,1200,1600,2000 08/09 1000 AC 08/09 PO 1010 Baclofen 30 MG 5 TIMES A DAY 08/08 1400 DC 08/08 PO 2211 Bisacodyl 10 MG ONCE ONE 08/08 2130 DC 08/08 NE 08/08 2131 2211 Ceftriaxone Sodium 1,000 MG 0600 08/08 0600 AC 08/09 IV 0616 Diazepam 5 MG DAILY PRN 08/08 0330 AC 08/08 PO 0606 Enoxaparin Sodium 40 MG DAILY 08/08 1000 AC 08/09 SC 0953 Guaifenesin 600 MG Q12 08/08 2317 AC 08/09 PO 0952 Insulin Aspart 0 TIDAC 08/08 0800 AC SC Levothyroxine Sodium 0.05 MG DAILY AC 08/08 0700 AC 08/09 PO 0616 Omeprazole 40 MG DAILY AC 08/08 0700 AC 08/09 PO 0616 Oxymetazoline HCl 2 SPRAY BID 08/08 2219 AC 08/09 EMILY 0952 Polyethylene Glycol 17 GM DAILY 08/09 1000 AC 08/09 PO 0951 Senna/Docusate Sodium 1 TAB BID PRN 08/08 0330 AC 08/08 PO 2211 Sertraline HCl 50 MG DAILY 08/08 1000 AC 08/09 PO 0952 Simethicone 40 MG Q6P PRN 08/09 0115 AC 08/09 PO 0205 Sodium Chloride 1,000 ML Q13H 08/08 0330 DC 05 IV 08/08 1629 0442 Tramadol HCl 50 MG Q6 PRN 08/08 0400 AC 08/08 PO 2211 Last 24 Hrs of Lab/Kulwinder Results Last 24 Hrs of Labs/Mics: Laboratory Tests 08/08/16 1200: Creatine Kinase 216 H, D-Dimer 439 H Microbiology 08/08 1430 LOWER RESP: Respiratory Culture - RES 08/08 1430 LOWER RESP: Gram Stain - RES Orders Miscellaneous Findings: Chest CT: IMPRESSION: 1. Regions of opacity in the left upper lobe and bilateral lower lobes which are mostly curvilinear in nature, favoring that this at least mostly represents atelectasis. A component of superimposed consolidation would be difficult to exclude in the proper clinical setting. 2. Multiple scattered mediastinal lymph nodes, the largest of which is mildly enlarged anterior to the suman; appearance is similar to prior. 3. Cardiomegaly and trace pericardial effusion. 4. Dilated main pulmonary artery, suspicious for pulmonary artery hypertension. Venous Doppler: IMPRESSION: 1. No evidence of deep vein thrombosis in either thigh. 2. The right popliteal vein is normal. The left popliteal vein could not be evaluated due to limiting factors. 3. Calf veins are suboptimally evaluated due to patient body habitus. Lower extgremity CT: IMPRESSION: 1. No acute osseous injury in either extremity from the level of the hips to ankles. 2. 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 3. Obese body habitus and subcutaneous tissue edema within both lower extremities; no focal soft tissue hematoma. CT CSpine: IMPRESSION: 1. No acute fracture or dislocation of cervical spine. 2. Partial visualization of the superior mediastinal and lower cervical adenopathy. CT abdomen: IMPRESSION: 1. Obese body habitus and chronic hepatosplenomegaly. 2. Fat-containing midline hernia in the umbilical region is unchanged compared to 11/21/2015. 3. Diverticulosis of the sigmoid colon without diverticulitis. 4. No acute fractures or traumatic subluxations within the chronically degenerated lumbar spine. Assessment/Plan Assessment: Ms. Campoverde is a pleasant 76 year old female with PMH Mutliple sclerosis with ambulatory dysfunction, and oxygen dependance urinary retention secondary to spastic bladder, non-insulin dependant diabetes mellitus, VALARIE on nasal CPAP, chronic constipation, HLD, anxiety, depression, obesity and chronic lower extremity edema who presented to [place] s/p [facility] without loss of consciousness, palpitations or headache and found to by hypoxic on arrival. In the ED: Vital signs showed 83% on 4 L NC, with T 97, HR 90, RR 22 and BP 164/ 82. Labs significant for WBC 13.5. Serum chemistries were within normal limits. Lactic acid 0.8, Troponin 0.02. ABG pH 7.42 / CO2 41 / O2 52 / HCO3 26. Rapid flu negative. Patient is admitted to the telemetry floor and the following is the management: 1. Acute on chronic hypoxic respiratory failure * Likely secondary to community acquired pneumonia, however trauma and pulmonary embolism remain on differential * Hx of recent URI failing outpatient azithromycin * Patient currently on high flow oxygen with O2 saturations only in the low 90s * Continue ceftiraxone and azithromycin daily, monitor for fevers * F/U blood and LRC final results (urine strep and legionella negative) * V/Q scan ordered for today to further assess for PE (though DDimer only slightly elevated and bilateral lower extremity US negative for DVT) * Continue incentive spirometry, TRC nebs, nocturnal CPAP * Patient no longer needs continuous pulse oximetry, stable to transfer to * Of note, no active cardiac issues, cardio consult appreciated 2. Mechanical Fall * Patient is dependent upon a wheelchair at home for ambulation and is able only to perform transfers * Multiple imaging studies negative for acute fracture * PT eval appreciated * Patient interested in [facility] on discharge 3. Multiple sclerosis * Continue baclofen and valium daily * Requested patient's bring in home Copaxone today so pharmacy may verify and patient can receive this med * Follow up with Dr. Debbie MD after discharge 4. Urinary retention * Continue morris catheter * Urinary culture shows gram negative rods, await final culture results * Patient is already on ceftriaxone for PNA 5. NIDDM * Continue accuchecks TIDAC/HS * Hold oral hypoglycemics, continue NSS Obstructive Sleep Apnea - continue nocturnal CPAP Hypertension - hold lasix, aldactone, cardura, restart when stable Hyperlipidemia - Atorvastatin 10mg PO Daily Hypothyroidism - Levothyroxine 50mg PO Daily Depression - Zoloft 50mg PO Daily DNR/DNI Diabetic diet DVTP: Lovenox SC Problem List: 1. Inability to ambulate due to multiple joints 2. Pulmonary hypertension 3. Umbilical hernia 4. Hypertension 5. VALARIE (obstructive sleep apnea) 6. Acute respiratory failure with hypoxia 7. Pneumonia 8. Fall 9. Hypothyroidism 10. Hyperlipemia Pain Ratin Pain Location: Generalized muscle pain, prominent in ag[place]in and buttocks Pain Goal: Pain 4 or less Pain Plan: Mild pain pathway Tomorrow's Labs & Rationales: CBC (monitor leukocytosis), BEP (monitor renal function and electrolytes) Consulting Request: Consulting Specialty: Pulmonary Disease
--- NOTE | 2016-08-09 08:54 | PN- Pulmonary ---
Subjective HPI/Critical Care Issues: The patient is awake and alert. High flow oxygen at 60% to maintain her saturations in the low 90s. She complains of a cough which is productive of yellow sputum. She also reports that current right nasal passage is blocked and she is unable to get the oxygen in that side. She continues to have ongoing pain following her fall. Objective Current Medications: Current Medications Sig/Tash Start time Last Medication Dose Route Stop Time Status Admin Acetaminophen 650 MG Q6 PRN 08/08 0245 AC PO Albuterol Sulfate 3 ML EVERY 4 HRS/AWAKE 08/08 1600 AC 08/08 INH 2130 Atorvastatin Calcium 10 MG 1700 08/08 1700 AC 08/08 PO 1812 Azithromycin 500 MG DAILY 08/08 0400 AC 08/08 Dextrose/Water 250 ML IV 0459 Baclofen 30 MG SEE ADMIN CRITERIA 08/09 2200 UNVr PO Baclofen 30 MG 5 TIMES A DAY 08/08 1400 DC 08/08 PO 2211 Baclofen 20 MG Q6 08/08 1200 DC 08/08 PO 1120 Bisacodyl 10 MG ONCE ONE 08/08 2130 DC 08/08 VT 08/08 2131 2211 Ceftriaxone Sodium 1,000 MG 0600 08/08 0600 AC 08/09 IV 0616 Diazepam 5 MG DAILY PRN 08/08 0330 AC 08/08 PO 0606 Enoxaparin Sodium 40 MG DAILY 08/08 1000 AC 08/08 SC 1000 Guaifenesin 600 MG Q12 08/08 2317 AC 08/08 PO 2319 Insulin Aspart 0 TIDAC 08/08 0800 AC SC Levothyroxine Sodium 0.05 MG DAILY AC 08/08 0700 AC 08/09 PO 0616 Omeprazole 40 MG DAILY AC 08/08 0700 AC 08/09 PO 0616 Oxymetazoline HCl 2 SPRAY BID 08/08 2219 AC 08/08 EMILY 2353 Polyethylene Glycol 17 GM DAILY 08/09 1000 AC PO Senna/Docusate Sodium 1 TAB BID PRN 08/08 0330 AC 08/08 PO 2211 Sertraline HCl 50 MG DAILY 08/08 1000 AC 08/08 PO 1000 Simethicone 40 MG Q6P PRN 08/09 0115 AC 08/09 PO 0205 Sodium Chloride 1,000 ML Q13H 08/08 0330 DC 08/08 IV 08/08 1629 0442 Tramadol HCl 50 MG Q6 PRN 08/08 0400 AC 08/08 PO 2211 Vital Signs & I&O Last 24 Hrs of Vitals and I&O: Vital Signs Date Time Temp Pulse Resp B/P Pulse O2 O2 Flow FiO2 Ox Delivery Rate 08/09 0500 90 BIPAP 10L 08/09 0000 BIPAP 8L 08/08 2345 98.0 70 20 118/50 90 Nasal Cannula 08/08 2339 94 Nasal 60% Cannula 08/08 2131 Nasal Cannula 08/08 1613 98.1 63 18 110/66 94 08/08 1600 Nasal 60% Cannula 08/08 1438 Nasal 60% Cannula 08/08 1000 60 102/64 Intake & Output 08/09 1600 08/09 0800 08/09 0000 Intake Total 350 650 Output Total 650 450 Balance -300 200 Intake, IV 0 0 Intake, Oral 350 650 Number 0 1 Bowel Movements Output, Urine 650 450 Exam General Appearance: no apparent distress, alert, anxious Head: atraumatic, normal appearance Neck: supple Respiratory: quiet respiration, decreased breath sounds Cardiovascular: regular rate/rhythm (S1 and S2 heard, distant ) Abdomen: normal bowel sounds, soft, non-tender Extremities: chronic lower extremity edema Skin: intact, normal color, warm/dry Results Last 24 Hrs of Lab Results: Laboratory Tests 08/08/16 1200: Creatine Kinase 216 H, D-Dimer [address] Scan Findings: 1. Regions of opacity in the left upper lobe and bilateral lower lobes which are mostly curvilinear in nature, favoring that this at least mostly represents atelectasis. A component of superimposed consolidation would be difficult to exclude in the proper clinical setting. 2. Multiple scattered mediastinal lymph nodes, the largest of which is mildly enlarged anterior to the suman; appearance is similar to prior. 3. Cardiomegaly and trace pericardial effusion. 4. Dilated main pulmonary artery, suspicious for pulmonary artery hypertension. US Findings: 1. No evidence of deep vein thrombosis in either thigh. 2. The right popliteal vein is normal. The left popliteal vein could not be evaluated due to limiting factors. 3. Calf veins are suboptimally evaluated due to patient body habitus. Impression/Plan Impression/Plan Impression/Plan: 1. Status post mechanical fall. 2. Ongoing hypoxemic respiratory failure secondary to atelectasis versus superimposed pneumonia. 3. Urine culture positive for gram-negative rods. 4. Recent episode of bronchitis. 5. History of multiple sclerosis with ambulatory dysfunction. 6. Urinary retention secondary to spastic bladder. 8. Fnx-[id number] diabetes. 9. Obstructive sleep apnea, on nasal CPAP. 10. Chronic constipation. Recommendations: * Continue ceftriaxone and azithromycin. * Follow up CULTURE results. * Incentive spirometry for atelectasis prevention. * Nebs/TRC to continue. * Continue nocturnal CPAP. * If the patient's oxygenation does not improve, we will need to check a CT angiogram to rule out pulmonary embolism. * Increase activity, PT as tolerated. * The patient is interested in going to [place] for short-term rehabilitation upon discharge. * Continue all supportive care.
[2016-08-09 09:15] VITALS: BP 122/62
[2016-08-09 13:53] LABS: ABSOLUTE BASOPHIL COUNT 0 /CUMM (0.0-0.2); ABSOLUTE EOSINOPHIL COUNT 0.4 /CUMM (0.0-0.7); ABSOLUTE GRANULOCYTE CT 6.9 /CUMM (1.4-6.5); ABSOLUTE LYMPH COUNT 1.4 /CUMM (1.2-3.4); ABSOLUTE MONOCYTE COUNT 0.5 /CUMM (0.10-0.60); BASOPHIL % 0.3 % (0.0-2.0); EOSINOPHIL % 4.2 % (0-5); GRANULOCYTE % 74.7 % (42.2-75.2); HEMATOCRIT 34.8 % (37-47); MEAN CORPUSCULAR VOLUME 84.9 FL (81.0-99.0); PLATELET COUNT 154 /CUMM (130-400); RBC DISTRIBUTION WIDTH 17.5 % (11.5-14.5); WHITE BLOOD CELL COUNT 9.2 /CUMM (4.8-10.8)
[2016-08-09 16:30] VITALS: BP 122/56
--- NOTE | 2016-08-09 23:00 | NUR ---
NURSING NOTE: PT ARRIVED TO 2NA VIA STRETCHER @ [id number]. PT A&O X3, ON HIGH FLOW O2 WITH RESPIRATORY AT BEDSIDE. ONCE SETTLED IN RM 236, RESPIRATORY SWITCHED PT TO OWN BIPAP MACHINE FOR VALARIE. SHCEDULED DOSE OF BACLOFEN ADMINISTERED. PT ASSESSMENT COMPLETED. RN WILL CONTINUE TO MONITOR.
[2016-08-09 23:38] VITALS: BP 122/48
--- NOTE | 2016-08-10 06:35 | PN- Housestaff ---
RUMA DARNELL,[facility] 08/10/16 0635: Subjective Follow-up For: Acute hypoxic respiratory failure Mechanical fall Atelectasis vs superimposed PNA MS with ambulatory dysfunction Urinary retention DM VALARIE on CPAP Subjective: Ms. Campoverde was seen and examined this morning. Patient states that she is comfortable. She continues to be on supplemental high flow oxygen. Patient does state that she was unable to get comfortable overnight. As a result of this was unable to sleep. She does express mild back pain. She denies any fever, chills, nausea, vomiting. She is tolerating her by mouth intake well. Review of Systems Constitutional: Reports: see HPI. Objective Last 24 Hrs of Vital Signs/I&O Vital Signs Date Time Temp Pulse Resp B/P Pulse O2 O2 Flow FiO2 Ox Delivery Rate 08/10 1443 98.0 66 20 120/55 92 08/10 1441 Nasal 10L Cannula 08/10 1432 Nasal 10L Cannula 08/10 1231 94 Nasal 10L Cannula 08/10 1208 95 Nasal 50% Cannula 08/10 1115 94 Nasal 50% Cannula 08/10 0800 Nasal 60% Cannula 08/10 0759 92 Nasal 60% Cannula 08/10 0638 98.1 67 20 122/54 91 Nasal Cannula / 0000 90 CPAP / 2338 99.0 62 19 122/48 90 CPAP / 2250 92 CPAP 10L 08/09 1940 91 Nasal 60% Cannula 08/09 1630 98.0 65 20 122/56 91 Nasal 40% Cannula 08/09 1620 93 Nasal 60% Cannula Intake & Output / 1600 /07 0800 / 0000 Intake Total 250 350 Output Total 1000 550 550 Balance -1000 -300 -200 Intake, Oral 250 350 Number 0 Bowel Movements Output, Urine 1000 550 550 Physical Exam General Appearance: Alert, Oriented X3, Cooperative Cardiovascular: Normal S1, Normal S2 Lungs: Decreased Breath Sounds. Crackles at lung bases. Abdomen: Normal Bowel Sounds, Soft, No Tenderness Neurological: Normal Speech Extremities: No Cyanosis, No Edema Vascular: Normal Pulses Current Medications: Current Medications Sig/Tash Start time Last Medication Dose Route Stop Time Status Admin Acetaminophen 650 MG Q6 PRN 08/08 0245 AC PO Albuterol Sulfate 3 ML EVERY 4 HRS/AWAKE / 1600 AC / INH 1202 Atorvastatin Calcium 10 MG 1700 08/08 1700 AC 03/06 PO 1639 Azithromycin 500 MG DAILY 08/08 0400 AC 08/10 Dextrose/Water 250 ML IV 0906 Baclofen 30 MG 0000 08/10 0000 DC 08/09 PO 08/10 0001 2314 Baclofen 30 MG 0800,1200,1600,2000 08/09 1000 AC 08/10 PO 1550 Ceftriaxone Sodium 1,000 MG 0600 08/08 0600 AC 08/10 IV 0607 Diazepam 5 MG DAILY PRN 08/08 0330 AC 08/10 PO 0215 Docusate Sodium 100 MG DAILY 08/10 1101 AC 08/10 PO 1551 Enoxaparin Sodium 40 MG DAILY 08/08 1000 AC 08/10 SC 0905 Glatiramer Acetate 40 MG SAT 08/10 1000 FL SC Glatiramer Acetate 40 MG 08/09 2100 AC 08/09 SC 2203 Guaifenesin 600 MG Q12 08/08 2317 AC 08/10 PO 0858 Insulin Aspart 0 TIDAC 08/08 0800 AC 08/10 SC 1138 Levothyroxine Sodium 0.075 MG DAILY AC 08/14 0700 AC PO 08/14 0701 Levothyroxine Sodium 0.05 MG DAILY AC 08/11 0700 AC PO 08/13 0701 Levothyroxine Sodium 0.075 MG DAILY AC 08/10 0700 DC 08/10 PO 08/10 0701 0803 Levothyroxine Sodium 0.05 MG DAILY AC 08/08 0700 DC 08/09 PO 0616 Omeprazole 40 MG DAILY AC 08/08 0700 AC 08/10 PO 0607 Oxymetazoline HCl 2 SPRAY BID 08/08 2219 AC 08/10 EMILY 0906 Patient Medication 1 ED .STK-MED ONE 08/10 1418 FL Teaching ED 08/10 1419 Patient Own 1 UNIT DAILY 08/10 1130 AC 08/10 Medication PO 1555 Polyethylene Glycol 17 GM DAILY 08/09 1000 AC 08/10 PO 0857 Psyllium Hydrophilic 1 PAC BID 08/10 1100 AC 08/10 Mucilloid PO 1554 Senna/Docusate Sodium 1 TAB BID PRN 08/08 0330 AC 08/10 PO 1139 Sertraline HCl 50 MG DAILY 08/08 1000 AC 08/10 PO 0857 Simethicone 40 MG Q6P PRN 08/09 0115 AC 08/09 PO 0205 Sodium Chloride 2 SPRAY Q4P PRN 08/09 2030 AC 08/09 EMILY 2202 Tramadol HCl 50 MG Q6 PRN 08/08 0400 AC 08/10 PO 0941 Last 24 Hrs of Lab/Kulwinder Results Last 24 Hrs of Labs/Mics: Laboratory Tests 08/10/16 0625: Anion Gap 8, Estimated GFR > 60, BUN/Creatinine Ratio 30.0 H, CBC w Diff NO MAN DIFF REQ, RBC 4.10 L, MCV 85.7, MCH 28.4, RDW 17.5 H, MPV 8.9, Gran % 74.6, Lymphocytes % 16.2 L, Monocytes % 4.9, Eosinophils % 3.8, Basophils % 0.5, Absolute Granulocytes 7.1 H, Absolute Lymphocytes 1.6, Absolute Monocytes 0.5, Absolute Eosinophils 0.4, Absolute Basophils 0, PUBS MCHC 33.2 Orders Radiology Findings: IMPRESSION: 1. Suspect central vascular congestion superimposed upon pulmonary arterial hypertension and dilated cardiomyopathy. Please correlate clinically to exclude mild interstitial edema. 2. Bibasilar linear subsegmental atelectasis. DICTATED BY: JENIFER DARNELL,RUMA Cooper Assessment/Plan Assessment: Ms. Campoverde is a pleasant 76 year old female with PMH Mutliple sclerosis with ambulatory dysfunction, and oxygen dependance urinary retention secondary to spastic bladder, non-insulin dependant diabetes mellitus, VALARIE on nasal CPAP, chronic constipation, HLD, anxiety, depression, obesity and chronic lower extremity edema who presented to [place] s/p fall without loss of consciousness, palpitations or headache and found to by hypoxic on arrival. Acute on chronic hypoxic respiratory failure Likely secondary to community acquired pneumonia, however trauma and pulmonary embolism remain on differential Hx of recent URI failing outpatient azithromycin Patient currently on high flow oxygen with O2 saturations only in the low 90s Continue ceftiraxone and azithromycin daily, monitor for fevers F/U blood and LRC final results (urine strep and legionella negative) V/Q scan ordered 08/10/2016 declined Continue incentive spirometry, TRC nebs, nocturnal CPAP Patient no longer needs continuous pulse oximetry, stable to transfer to Of note, no active cardiac issues, cardio consult appreciated Mechanical Fall Patient is dependent upon a wheelchair at home for ambulation and is able only to perform transfers Multiple imaging studies negative for acute fracture PT eval appreciated Patient interested in [facility] on discharge Patient had a morris in place - can dc in AM Multiple sclerosis Continue baclofen and valium daily Requested patient's bring in home Copaxone today so pharmacy may verify and patient can receive this med Follow up with Dr. Debbie MD after discharge Urinary retention Continue morris catheter Urinary culture shows gram negative rods, await final culture results Patient is already on ceftriaxone for PNA NIDDM Continue accuchecks TIDAC/HS Hold oral hypoglycemics, continue NSS Obstructive Sleep Apnea continue nocturnal CPAP Hypertension hold lasix, aldactone, cardura, restart when stable Hyperlipidemia - Continue Atorvastatin 10mg PO Daily Hypothyroidism Continue Levothyroxine 50mg PO Daily Depression Continue Zoloft 50mg PO Daily DNR/DNI Diabetic diet DVTP: Lovenox SC Problem List: 1. Inability to ambulate due to multiple joints 2. Pulmonary hypertension 3. Hypertension 4. VALARIE (obstructive sleep apnea) 5. Shortness of breath 6. Pneumonia 7. UTI Pain Ratin Pain Location: Back pain 2/2 to fall Pain Goal: Remain pain free Pain Plan: Tramadol 50 mg Tomorrow's Labs & Rationales: No Labs needed Consulting Request: Consulting Specialty: Pulmonary Disease ANA DARNELL,[facility] 08/10/16 1234: Attending MD Review Statement Attending Statement Attending MD Statement: examined this patient, discuss w/resident/PA/CELEBRITY MANAGER, agreed w/resident/PA/CELEBRITY MANAGER, discussed with family, reviewed EMR data (avail), discussed with nursing, discussed with case mgmt, reviewed images, amended to note Attending Assessment/Plan: Patient seen and examined, not feeling too well yet. Still requiring high flow oxygen. She also has been complaining off feeling overall weak and had some pain from the fall in her back. Vital Signs Date Time Temp Pulse Resp B/P Pulse O2 O2 Flow FiO2 Ox Delivery Rate 08/10 1231 94 Nasal 10L Cannula 08/10 1208 95 Nasal 50% Cannula 08/10 1115 94 Nasal 50% Cannula 08/10 0759 92 Nasal 60% Cannula 08/10 0638 98.1 67 20 122/54 91 Nasal Cannula 08/10 0000 90 CPAP 08/09 2338 99.0 62 19 122/48 90 CPAP 08/09 2250 92 CPAP 10L 08/09 1940 91 Nasal 60% Cannula 08/09 1630 98.0 65 20 122/56 91 Nasal 40% Cannula 08/09 1620 93 Nasal 60% Cannula 08/09 1600 94 Nasal 60% Cannula 08/09 1325 92 Nasal 60% Cannula on exam; aox3, nad. cv; s1,s2, rrr. resp; mild crackles at left base. abd; soft, nt, bs+ ext; no edema Laboratory Tests 08/10 624 Chemistry Sodium (137 - 145 mmol/L) 139 Potassium (3.5 - 5.1 mmol/L) 4.7 Chloride (98 - 107 mmol/L) 103 Carbon Dioxide (22 - 30 mmol/L) 28 Anion Gap (5 - 16) 8 BUN (7 - 17 mg/dL) 21 H Creatinine (0.5 - 1.0 mg/dL) 0.7 Estimated GFR (>60 ml/min) > 60 BUN/Creatinine Ratio (7 - 25 %) 30.0 H Hematology CBC w Diff NO MAN DIFF REQ WBC (4.8 - 10.8 /CUMM) 9.6 RBC (4.20 - 5.40 /CUMM) 4.10 L Hgb (12.0 - 16.0 G/DL) 11.7 L Hct (37 - 47 %) 35.2 L MCV (81.0 - 99.0 FL) 85.7 MCH (27.0 - 31.0 PG) 28.4 RDW (11.5 - 14.5 %) 17.5 H Plt Count (130 - 400 /CUMM) 153 MPV (7.4 - 10.4 FL) 8.9 Gran % (42.2 - 75.2 %) 74.6 Lymphocytes % (20.5 - 51.1 %) 16.2 L Monocytes % (1.7 - 9.3 %) 4.9 Eosinophils % (0 - 5 %) 3.8 Basophils % (0.0 - 2.0 %) 0.5 Absolute Granulocytes (1.4 - 6.5 /CUMM) 7.1 H Absolute Lymphocytes (1.2 - 3.4 /CUMM) 1.6 Absolute Monocytes (0.10 - 0.60 /CUMM) 0.5 Absolute Eosinophils (0.0 - 0.7 /CUMM) 0.4 Absolute Basophils (0.0 - 0.2 /CUMM) 0 PUBS MCHC (33.0 - 37.0 G/DL) 33.2 A/P; 76 y/o F with pmh sig for multiple sclerosis, morbid obesity, obesity hypoventilation syndrome, T2DM, HTN, HLD, spastic bladder admitted with mechanical fall and acute hypoxemic respiratory failure, still on high flow oxygen. Patient also has a UTI. Continue ceftriaxone and azithromycin and will try to taper her 02. Continue breathing treatments. Appreciate pulmonology input and Rolando Haley MD is recommending [place] evaluation. Patient needs to get out of bed and once she is able to do that under but better , will discontinue her Morris catheter. Continue other current medications. DVT prophylaxis: Lovenox. Patient needs short-term rehabilitation versus acute rehabilitation. D/w at bedside.
[2016-08-10 06:38] VITALS: BP 122/54
[2016-08-10 08:23] LABS: ABSOLUTE BASOPHIL COUNT 0 /CUMM (0.0-0.2); ABSOLUTE EOSINOPHIL COUNT 0.4 /CUMM (0.0-0.7); ABSOLUTE GRANULOCYTE CT 7.1 /CUMM (1.4-6.5); ABSOLUTE LYMPH COUNT 1.6 /CUMM (1.2-3.4); ABSOLUTE MONOCYTE COUNT 0.5 /CUMM (0.10-0.60); BASOPHIL % 0.5 % (0.0-2.0); EOSINOPHIL % 3.8 % (0-5); GRANULOCYTE % 74.6 % (42.2-75.2); HEMATOCRIT 35.2 % (37-47); MEAN CORPUSCULAR HGB 28.4 PG (27.0-31.0); MEAN CORPUSCULAR HGB CONC 33.2 G/DL (33.0-37.0); MEAN CORPUSCULAR VOLUME 85.7 FL (81.0-99.0); MEAN PLATELET VOLUME 8.9 FL (7.4-10.4); PLATELET COUNT 153 /CUMM (130-400); RBC DISTRIBUTION WIDTH 17.5 % (11.5-14.5); WHITE BLOOD CELL COUNT 9.6 /CUMM (4.8-10.8)
--- NOTE | 2016-08-10 10:07 | PN- Pulmonary ---
Subjective HPI/Critical Care Issues: The patient is awake and alert. She refused VQ scanning yesterday. A CTA could not be done due to IV contrast allergy. She remains on high flow oxygen with saturations in the low 90s. Lower extremity Dopplers were negative on 2016 however the study was suboptimal. She continues to complain of pain as a result of her fall. Objective Current Medications: Current Medications Sig/Tash Start time Last Medication Dose Route Stop Time Status Admin Acetaminophen 650 MG Q6 PRN 08/08 0245 AC PO Albuterol Sulfate 3 ML EVERY 4 HRS/AWAKE 08/08 1600 AC 08/10 INH 0741 Atorvastatin Calcium 10 MG 1700 08/08 1700 AC 08/09 PO 1639 Azithromycin 500 MG DAILY 08/08 0400 AC 08/10 Dextrose/Water 250 ML IV 0906 Baclofen 30 MG 0000 08/10 0000 DC 08/09 PO 08/10 0001 2314 Baclofen 30 MG 0800,1200,1600,2000 08/09 1000 AC 08/10 PO 0859 Ceftriaxone Sodium 1,000 MG 0600 08/08 06 AC 08/10 IV 0607 Diazepam 5 MG DAILY PRN 08/08 0330 AC 08/10 PO 0215 Enoxaparin Sodium 40 MG DAILY 08/08 1000 AC 08/10 SC 0905 Glatiramer Acetate 40 MG SAT 08/10 1000 DC SC Glatiramer Acetate 40 MG 08/09 2100 AC 08/09 SC 2203 Guaifenesin 600 MG Q12 08/08 2317 AC 08/10 PO 0858 Insulin Aspart 0 TIDAC 08/09 799 AC SC Levothyroxine Sodium 0.075 MG DAILY AC 08/14 07 AC PO 08/14 0701 Levothyroxine Sodium 0.05 MG DAILY AC 08/11 07 AC PO 08/13 0701 Levothyroxine Sodium 0.075 MG DAILY AC 08/10 0700 DC 08/10 PO 08/10 0701 0803 Levothyroxine Sodium 0.05 MG DAILY AC 08/08 07 DC 08/09 PO 0616 Omeprazole 40 MG DAILY AC 08/08 0700 AC 08/10 PO 0607 Oxymetazoline HCl 2 SPRAY BID 08/08 2219 AC 08/10 EMILY 0906 Polyethylene Glycol 17 GM DAILY 08/09 1000 AC 08/10 PO 0857 Senna/Docusate Sodium 1 TAB BID PRN 08/08 0330 AC 08/10 PO 0607 Sertraline HCl 50 MG DAILY 08/08 1000 AC 08/10 PO 0857 Simethicone 40 MG Q6P PRN 08/09 0115 AC 08/09 PO 0205 Sodium Chloride 2 SPRAY Q4P PRN 08/09 2030 AC 08/09 EMILY 2202 Tramadol HCl 50 MG Q6 PRN 08/08 0400 AC 08/10 PO 0941 Vital Signs & I&O Last 24 Hrs of Vitals and I&O: Vital Signs Date Time Temp Pulse Resp B/P Pulse O2 O2 Flow FiO2 Ox Delivery Rate 08/10 0759 92 Nasal 60% Cannula 08/10 0638 98.1 67 20 122/54 91 Nasal Cannula 08/10 0000 90 CPAP 08/09 2338 99.0 62 19 122/48 90 CPAP 08/09 2250 92 CPAP 10L 08/09 1940 91 Nasal 60% Cannula 08/09 1630 98.0 65 20 122/56 91 Nasal 40% Cannula 08/09 1620 93 Nasal 60% Cannula 08/09 1600 94 Nasal 60% Cannula 08/09 1325 92 Nasal 60% Cannula Intake & Output 08/10 1600 08/10 0800 08/10 0000 Intake Total 250 350 Output Total 550 550 Balance -300 -200 Intake, Oral 250 350 Number 0 Bowel Movements Output, Urine 550 550 Exam General Appearance: no apparent distress, alert, anxious, obese Head: atraumatic, normal appearance Neck: supple Respiratory: quiet respiration, decreased breath sounds Cardiovascular: regular rate/rhythm (S1 and S2 heard, distant) Abdomen: normal bowel sounds, soft, non-tender Extremities: chronic lower extremity edema Skin: intact, normal color, warm/dry Results Last 24 Hrs of Lab Results: Laboratory Tests 08/10/16 0625: Anion Gap 8, Estimated GFR > 60, BUN/Creatinine Ratio 30.0 H, CBC w Diff NO MAN DIFF REQ, RBC 4.10 L, MCV 85.7, MCH 28.4, RDW 17.5 H, MPV 8.9, Gran % 74.6, Lymphocytes % 16.2 L, Monocytes % 4.9, Eosinophils % 3.8, Basophils % 0.5, Absolute Granulocytes 7.1 H, Absolute Lymphocytes 1.6, Absolute Monocytes 0.5, Absolute Eosinophils 0.4, Absolute Basophils 0, PUBS MCHC 33.2 08/09/16 1110: Anion Gap 8, Estimated GFR > 60, BUN/Creatinine Ratio 31.3 H, CBC w Diff NO MAN DIFF REQ, RBC 4.10 L, MCV 84.9, MCH 28.0, RDW 17.5 H, MPV 9.0, Gran % 74.7, Lymphocytes % 15.5 L, Monocytes % 5.3, Eosinophils % 4.2, Basophils % 0.3, Absolute Granulocytes 6.9 H, Absolute Lymphocytes 1.4, Absolute Monocytes 0.5, Absolute Eosinophils 0.4, Absolute Basophils 0, PUBS MCHC 33.0 Last 24 Hrs of Micro Results: Urine positive for Klebsiella. Impression/Plan Impression/Plan Impression/Plan: 1. Status post mechanical fall. 2. Ongoing hypoxemic respiratory failure secondary to atelectasis versus superimposed pneumonia. 3. Urine culture positive for gram-negative rods. 4. Recent episode of bronchitis. 5. History of advanced multiple sclerosis with ambulatory dysfunction. 6. Urinary retention secondary to spastic bladder. 8. Eyc-gllnnkn-wufkqskha diabetes. 9. Obstructive sleep apnea, on nasal CPAP. 10. Chronic constipation. 11. Severe pulmonary hypertension which is multifactorial - the patient had a right and left heart cath in the past which demonstrated extremely severe pulmonary hypertension. She is not a candidate for vasodilator therapy. 12. Klebsiella UTI? on Ceftriaxone. Recommendations: * Check a CXR today. * Continue ceftriaxone and azithromycin. * Incentive spirometry for atelectasis prevention. * Nebs/TRC to continue. * Continue nocturnal CPAP. * Increase activity, PT as tolerated. * The patient is interested in going to [facility] for short-term rehabilitation upon discharge. Because of her ongoing hypoxia and high oxygen requirement, we need to consider [facility] referral. Please discuss with case management. * Patient refuses VQ scan. * Continue all supportive care.
--- NOTE | 2016-08-10 11:42 | Discharge Summary ---
Visit Information Visit Dates Admission Date: 08/08/16 Discharge Date: 08/13/16 Hospital Course Course Attending Physician: LARISSA PEREZ MD Primary Care Physician: CAROLA DARNELL,MICHI Phillips Consulting Request: Consulting Specialty: Pulmonary Disease Hospital Course: 76-year-old female with past medical history significant for multiple sclerosis, obstructive sleep apnea on CPAP, pulmonary hypertension, hypertension hyperlipidemia is brought into [facility] by ambulance for evaluation after sustaining a mechanical fall. White is an evaluation blood pressure 164/82, respiration 22, pulse rate 90, temperature 97.0, oxygen saturation 83% on 4 L nasal cannula which went up to 91 after 100% Ventimask. Labs and admission WBC 13.5, hemoglobin 13.0, hematocrit 39.2, platelets 200, sodium 138, potassium 5.0, In the ED: Vital signs showed 83% on 4 L NC, with T 97, HR 90, RR 22 and BP 164/ 82. Labs significant for WBC 13.5. Serum chemistries were within normal limits. Lactic acid 0.8, Troponin 0.02. ABG pH 7.42 / CO2 41 / O2 52 / HCO3 26. Rapid flu negative. Hospital course 1. Acute on chronic hypoxic respiratory failure secondary to community-acquired pneumonia she was started on ceftriaxone and azithromycin. CAT scan showed left upper lobe and bilateral lower lobe opacities. Lower extremity ultrasound was done to rule out PE which was negative. She was continued on ceftriaxone and azithromycin and later transitioned to by mouth Augmentin to complete a total course of 7 days. She was maintained on TRC nebulizes. Her oxygen saturation improved from high flow to nasal canula. She was restarted on her home medications Lasix 20 mg daily which also helped her breathing status.urine strep and Legionella was negative.PE was unable to be ruled out as patient refused to have a CT angiogram or a ventilation/perfusion scan. Given that her saturation improved with IV antibiotics for acute hyoxic respiratory failure was most likely due to community-acquired pneumonia. 2. Mechanical fall: Patient is dependent upon a wheelchair at home for ambulation and is able only to perform transfers. Multiple imaging studies negative for acute fracture. PT evaluated and recommended acute rehabilitation 3. Multiple sclerosis: she was continued on Copaxone and a baclofen, Valium she is a home medication. She follows up with Dr. Olivas 4. Urinary retention:she was initially placed on a Gallego catheter for accurate I's and O's. Her urinary tract infection recommendation was to take the Gallego out. patient was able to wipe herself after Foleys removal. 5. Urinary tract infection: urine came back positive for Klebsiella pneumonia sensitive to Augmentin which she was discharged home. 6. Obstructive Sleep Apnea Continue nocturnal CPAP 7. Hypertension Conitinue Lasix, 40 mg PO 8. Hyperlipidemia - Continue Atorvastatin 10mg PO Daily 9. Hypothyroidism Continue Levothyroxine 50mg PO Daily 10. Depression Continue Zoloft 50mg PO Daily 11. History of severe pulmonary hypertension: had echocardiogram done which showed a normal LVEF, with RVSP of 80 mm Hg DNR/DNI Diabetic diet DVTP: Lovenox SC Allergies: Coded Allergies: hydrochlorothiazide (From AVALIDE) (Intermediate, HEART RACE 11/20/15) irbesartan (From AVALIDE) (Intermediate, HEART RACE 11/20/15) adhesive (SKIN COMES OFF 11/20/15) mold (UNKNOWN 11/20/15) Gadolinium-Containing Contrast Medi (SYNCOPE FROM IV CONTRAST 11/20/15) Iodinated Contrast Media - Oral and (IODINATED CONTRAST MEDIA - IV DYE) (SYNCOPE FROM IV CONTRAST 11/20/15) Significant Procedures: Echo on 08/12/16: 1. Mild to moderate aortic sclerosis is present with no valvular stenosis or insufficiency. 2. Mitral leaflet thickening is present with moderate anular calcification and mild mitral insufficiency with left atrial enlargement. 3. A small pericardial effusion is present which is hemodynamically insignificant. 4. The left ventricular chamber size is normal with a normal ejection fraction. Abnormal septal motion is present. 5. Enlargement of the right heart chambers is present with moderately severe tricuspid insufficiency and mild pulmonic insufficiency with severe pulmonary hypertension and an estimated RV systolic pressure of at least 80 mmHg. Pertinent Lab Results: Laboratory Tests 08/13 0610 Chemistry Sodium (137 - 145 mmol/L) 139 Potassium (3.5 - 5.1 mmol/L) 4.7 Chloride (98 - 107 mmol/L) 105 Carbon Dioxide (22 - 30 mmol/L) 27 Anion Gap (5 - 16) 7 BUN (7 - 17 mg/dL) 23 H Creatinine (0.5 - 1.0 mg/dL) 0.8 Estimated GFR (>60 ml/min) > 60 BUN/Creatinine Ratio (7 - 25 %) 28.8 H Disposition Summary Disposition Principal Diagnosis: 1. Acute on chronic hypoxic respiratory failure secondary to community-acquired pneumonia 2. Urinary tract infection 3. Mechanical fall Additional Diagnosis: Diabetes mellitus Obstructive sleep apnea Hypertension Hyperlipidemia Hypothyroidism excellent depression Discharge Disposition: STR Discharge Instructions General Discharge Information Code Status: Do Not Resucitate/Intubat Patient's Diet: Diabetic diet Patient's Activity: Wheelchair dependent As tolerated with PT Follow-Up Instructions/Appts: 1. Follow up woth PCP in a week upon discharge 2. Follow up with Dr. Villafuerte. Please call her office for a follow up appointment Medications at Discharge Discharge Medications: Continue taking these medications: Glatiramer Acetate (Copaxone) 40 MG/ML SYRINGE 40 Milligram Inject into fatty tissue SEE INSTRUCTIONS Instructions: ANJALI TAY Baclofen (Baclofen) 10 MG TABLET 3 Tablet ORAL 5XDAILY Furosemide (Furosemide) 40 MG TABLET 1 Tablet ORAL DAILY Days = 1 Metformin HCl (Metformin HCl) 500 MG TABLET 1 Tablet ORAL DAILY Linagliptin (Tradjenta) 5 MG TABLET 1 Tablet ORAL DAILY Dexlansoprazole (Dexilant) 60 MG CAP.BP 1 Capsule ORAL DAILY Levothyroxine Sodium (Synthroid) 50 MCG TABLET 1 Tablet ORAL SEE INSTRUCTIONS Instructions: 50 mcg in 5 days per week 75 mcg in 2 days per week Psyllium Hydrophylic Muciloid (Metamucil Packet) 3.4 GRAM POWD.PACK 2 Teaspoonful ORAL TWICE DAILY Docusate Sodium (Docusate Sodium) 250 MG CAPSULE 2 Capsule ORAL DAILY Bisacodyl (Dulcolax) 5 MG TABLET. 1 Tablet ORAL As Directed as needed for consti[ation Cranberry Extract (Ellura) 200 MG CAPSULE 1 Capsule ORAL DAILY Diazepam (Valium) 5 MG TABLET 1 Tablet ORAL as needed for MUSCLE SPASMS Naproxen Sodium (Aleve) 220 MG TABLET 2 Tablet ORAL as needed for PAIN Cetirizine HCl (Zyrtec) 10 MG TABLET 1 Tablet ORAL DAILY as needed for ALLERGIES Fexofenadine HCl (Ni Allergy) 180 MG TABLET 1 Tablet ORAL DAILY as needed for ALLERGIES Doxazosin Mesylate (Cardura) 8 MG TABLET 1 Tablet ORAL Every night Sertraline HCl (Zoloft) 50 MG TABLET 1 Tablet ORAL DAILY Tizanidine HCl (Tizanidine HCl) 2 MG TABLET 1 Tablet ORAL as needed for MUSCLE SPASMS Comments: PER PT UP TO 5XDAILY Atorvastatin Calcium (Atorvastatin Calcium) 10 MG TABLET 1 Tablet ORAL 5 PM Enoxaparin Sodium (Lovenox) 40 MG/0.4 ML SYRINGE 0.4 Milliliters Inject into fatty tissue DAILY Days = 10 Albuterol Sulfate (Proair Hfa) 90 MCG HFA.AER.AD 2 Puff Inhale through mouth EVERY 4-6 HOURS NEEDED as needed for sob Spironolactone (Aldactone) 25 MG TABLET 0 ORAL SEE INSTRUCTIONS Instructions: 25 in the AM 12.5 in the evening Polyethylene Glycol 3350 (Miralax) 17 GRAM POWD.PACK 1 Packet ORAL DAILY Instructions: dissolve in water Start taking the following new medications: Amoxicillin/Clavulanate Potass (Amox-Clav 875-125 MG Tablet) 875 MG-125 MG TABLET 875 Milligram ORAL EVERY 12 HOURS Qty = 8 No Refills Albuterol Sulfate (Albuterol Sulfate) 2.5 MG/3 ML (0.083 %) VIAL.NEB 1 Vial Inhale Solution EVERY 4 HOURS NEEDED as needed for Shortness of Breath Qty = 50 No Refills Copies To: CAROLA DARNELL,MICHI Phillips
--- NOTE | 2016-08-10 14:33 | RADIOLOGY REPORT ---
EXAMINATION: XR PORTABLE CHEST CLINICAL INFORMATION: Increased oxygen requirement. Decreased breath sounds. Evaluate for consolidation versus pulmonary artery enlargement. COMPARISON: CT scan of the chest dated 10/08/2016. Chest x-ray dated 08/07/2016, 07/14/2016 and 08/13/2014. TECHNIQUE: Portable AP semierect view of the chest was obtained. FINDINGS: The cardiomediastinal silhouette is enlarged, unchanged. Marked enlargement of the central pulmonary arteries is again noted, consistent with pulmonary arterial hypertension. Indistinctness of the central pulmonary vessels is also seen, suggesting pulmonary venous congestion. There is opacity again seen in the retrocardiac left lung base, likely due to a combination of patient's body habitus and portable technique of the film. Superimposed linear bibasilar opacities are seen, consistent with subsegmental atelectasis. No definite pleural effusion or pneumothorax is seen. Bony structures are unremarkable. IMPRESSION: 1. Suspect central vascular congestion superimposed upon pulmonary arterial hypertension and dilated cardiomyopathy. Please correlate clinically to exclude mild interstitial edema. 2. Bibasilar linear subsegmental atelectasis.
[2016-08-10 14:43] VITALS: BP 120/55
[2016-08-10 23:22] VITALS: BP 142/78
--- NOTE | 2016-08-11 06:19 | PN- Housestaff ---
RUMA DARNELL,[facility] 08/11/16 0618: Subjective Follow-up For: Acute hypoxic respiratory failure Mechanical fall Atelectasis vs superimposed PNA MS with ambulatory dysfunction Urinary retention DM VALARIE on CPAP Subjective: Ms Campoverde was seen and examined this morning. She is resting comfortably in bed. She reports no issues overnight. Patient does continue to report back discomfort. Rated a 5 out of 10 in severity. Described as a dull. Located in the thoracic area. Subsequently secondary to her fall. Patient denies any fever, chills, nausea, vomiting. Continues to be on supplemental oxygen nasal cannula on 10 L. Patient reports improvement in symptoms and feeling better. She requests that her Morris be continued due to discomfort of using bedpan. Review of Systems Constitutional: Reports: see HPI. Objective Last 24 Hrs of Vital Signs/I&O Vital Signs Date Time Temp Pulse Resp B/P Pulse O2 O2 Flow FiO2 Ox Delivery Rate 08/11 1114 Nasal 10L Cannula 08/11 0825 91 Nasal 10L Cannula 08/11 0655 98.1 59 20 134/74 93 10L 08/11 0537 92 Nasal 10L Cannula 08/11 0100 92 BIPAP 10L 08/11 0000 CPAP 08/10 2322 98.7 66 20 142/78 94 BIPAP 10L 08/10 2300 93 BIPAP 10L 08/10 1618 94 Nasal 10L Cannula 08/10 1600 Nasal 10L Cannula 08/10 1443 98.0 66 20 120/55 92 08/10 1441 Nasal 10L Cannula 08/10 1432 Nasal 10L Cannula Intake & Output 08/11 1600 08 0800 08/11 0000 Intake Total 380 250 Output Total 2100 1 650 Balance -2100 379 -400 Intake, IV 20 10 Intake, Oral 360 240 Output, Stool 1 Output, Urine 2100 650 Physical Exam General Appearance: Alert, Oriented X3, Cooperative, No Acute Distress Cardiovascular: Regular Rate, Normal S1, Normal S2 Lungs: Mild Bibassilar Crackles Abdomen: Normal Bowel Sounds, Soft, No Tenderness Neurological: Normal Gait, Normal Speech Extremities: No Clubbing, No Cyanosis, Edema Bilaterral 2+ Current Medications: Current Medications Sig/Tash Start time Last Medication Dose Route Stop Time Status Admin Acetaminophen 650 MG Q6 PRN 08/08 0245 AC PO Albuterol Sulfate 3 ML EVERY 4 HRS/AWAKE 08/08 1600 AC 03/08 INH 1126 Atorvastatin Calcium 10 MG 1700 08/08 1700 AC 08/10 PO 1718 Azithromycin 500 MG DAILY 08/08 0400 AC 08/11 Dextrose/Water 250 ML IV 0946 Baclofen 30 MG 0800,1200,1600,2000 08/09 1000 AC 08/11 PO 1258 Bisacodyl 5 MG DAILY PRN 08/10 1730 AC 08/10 PO 1940 Bisacodyl 10 MG DAILY PRN 08/10 1730 AC 08/10 TX 1939 Ceftriaxone Sodium 1,000 MG 0600 08/08 0600 AC 08/11 IV 0543 Diazepam 5 MG DAILY PRN 08/08 0330 AC 08/11 PO 0000 Docusate Sodium 100 MG DAILY 08/10 1101 AC 08/11 PO 0857 Enoxaparin Sodium 40 MG DAILY 08/08 1000 AC 08/11 SC 0856 Furosemide 40 MG DAILY 08/11 1000 AC 08/11 PO 0936 Glatiramer Acetate 40 MG 08/09 2100 AC 08/09 SC 2203 Guaifenesin 600 MG Q12 08/08 2317 AC 08/11 PO 0858 Insulin Aspart 0 TIDAC 08/08 0800 AC 08/10 SC 1138 Levothyroxine Sodium 0.075 MG DAILY AC 08/14 0700 AC PO 08/14 0701 Levothyroxine Sodium 0.05 MG DAILY AC 08/11 0700 AC 08/11 PO 08/13 0701 0543 Omeprazole 40 MG DAILY AC 08/08 0700 AC 08/11 PO 0543 Oxymetazoline HCl 2 SPRAY BID 08/08 2219 AC 08/10 EMILY 2106 Patient Medication 1 ED .ST-MED ONE 08/10 1418 UT Teaching ED 08/10 1419 Patient Own 1 UNIT DAILY 08/10 1130 AC 08/11 Medication PO 0858 Polyethylene Glycol 17 GM DAILY 08/09 1000 AC 08/11 PO 0852 Psyllium Hydrophilic 1 PAC BID 08/10 1100 AC 08/11 Mucilloid PO 0852 Senna/Docusate Sodium 1 TAB BID PRN 08/08 0330 AC 08/10 PO 1139 Sertraline HCl 50 MG DAILY 08/08 1000 AC 08/11 PO 0937 Simethicone 40 MG Q6P PRN 08/09 0115 AC 08/11 PO 0907 Sodium Chloride 2 SPRAY Q4P PRN 03/06 2030 AC 08/09 EMILY 2202 Tramadol HCl 50 MG Q6 PRN 08/08 0400 AC 08/10 PO 0941 Assessment/Plan Assessment: Ms. Campoverde is a pleasant 76 year old female with PMH Mutliple sclerosis with ambulatory dysfunction, and oxygen dependance urinary retention secondary to spastic bladder, non-insulin dependant diabetes mellitus, VALARIE on nasal CPAP, chronic constipation, HLD, anxiety, depression, obesity and chronic lower extremity edema who presented to [facility] s/p fall without loss of consciousness, palpitations or headache and found to by hypoxic on arrival. Acute on chronic hypoxic respiratory failure Likely secondary to community acquired pneumonia, however trauma and pulmonary embolism remain on differential Hx of recent URI failing outpatient azithromycin Patient currently on high flow oxygen with O2 saturations only in the low 90s Continue ceftriaxone and azithromycin daily, monitor for fevers F/U blood and L[facility] final results (urine strep and legionella negative) V/Q scan ordered 08/10/2016 declined Continue incentive spirometry, TRC nebs, nocturnal CPAP Patient no longer needs continuous pulse oximetry, stable to transfer to Of note, no active cardiac issues, cardio consult appreciated Currently on 10L via [facility]. Mechanical Fall Patient is dependent upon a wheelchair at home for ambulation and is able only to perform transfers Multiple imaging studies negative for acute fracture PT eval appreciated Patient interested in [facility] on discharge Multiple sclerosis Continue baclofen and valium daily Requested patient's bring in home Copaxone today so pharmacy may verify and patient can receive this med Follow up with Dr. Debbie MD after discharge Urinary retention Continue morris catheter. Extensively spoke to the patient about discontinuing Morris and expected to her that this is indeed a risk for further infection and possibly worsening urinary tract infection and symptoms. Patient is adamant about being continued on Morris for the next 24 hours owing to recent fall and back discomfort. We will renew the Morris for now and likely reconsider in the a.m. Urinary culture shows gram negative rods: Klebsiella Penumoniae Patient is already on ceftriaxone for PNA. Will likely convert to PO abx in 24 hours. NIDDM Continue accuchecks TIDAC/HS, Blood sugars: 184-->103-->125-->110-->122 Hold oral hypoglycemics, continue NSS Obstructive Sleep Apnea continue nocturnal CPAP Hypertension hold lasix, aldactone, cardura, restart when stable Hyperlipidemia - Continue Atorvastatin 10mg PO Daily Hypothyroidism Continue Levothyroxine 50mg PO Daily Depression Continue Zoloft 50mg PO Daily DNR/DNI Diabetic diet DVTP: Lovenox SC Problem List: 1. Pneumonia 2. Acute respiratory failure with hypoxia 3. Shortness of breath 4. VALARIE (obstructive sleep apnea) 5. Hypertension 6. Pulmonary hypertension Pain Ratin Pain Location: Toracic Area s/p Fall Pain Goal: Remain pain free Pain Plan: Tramadol HCL Tomorrow's Labs & Rationales: No Labs needed Consulting Request: Consulting Specialty: Pulmonary Disease LARISSA PEREZ MD 08/11/16 1239: Attending MD Review Statement Attending Statement Attending MD Statement: examined this patient, discuss w/resident/PA/INDUSTRIAL RELATIONS WORKER, agreed w/resident/PA/INDUSTRIAL RELATIONS WORKER, reviewed EMR data (avail), discussed with nursing, discussed with case mgmt, reviewed images, amended to note Attending Assessment/Plan: Patient seen and examined, slightly better today in terms of breathing. Feeling less short of breath and requiring less amount of oxygen. Vital Signs Date Time Temp Pulse Resp B/P Pulse O2 O2 Flow FiO2 Ox Delivery Rate 08/11 1114 Nasal 10L Cannula 08/11 0825 91 Nasal 10L Cannula 08/11 0655 98.1 59 20 134/74 93 10L 08/11 0537 92 Nasal 10L Cannula 08/11 0100 92 BIPAP 10L 08/11 0000 CPAP 08/10 2322 98.7 66 20 142/78 94 BIPAP 10L 08/10 2300 93 BIPAP 10L 08/10 1618 94 Nasal 10L Cannula 08/10 1600 Nasal 10L Cannula 08/10 1443 98.0 66 20 120/55 92 08/10 1441 Nasal 10L Cannula 08/10 1432 Nasal 10L Cannula on exam; aox3, nad. cv; s1,s2, rrr resp; b/l basal crackles. abd; soft. nt, bs+ ext; trace edema. no labs. A/p; 76 y/o F with pmh sig for multiple sclerosis, morbid obesity, obesity hypoventilation syndrome, T2DM, HTN, HLD, spastic bladder admitted with mechanical fall and acute hypoxemic respiratory failure and uti. Oxygen requirement has improved. Continue current antibiotics. We recommend that Morris catheter should be discontinued but patient is refusing to take the Morris out because she thinks that she is too weak to go on the bedpan specially the fact that she is on Lasix. Continue all other current medications and TRC nebs. Patient refuses to go to [facility] and willing to go to [facility]. DVt Px; Lovenox.
[2016-08-11 06:55] VITALS: BP 134/74
--- NOTE | 2016-08-11 10:44 | PN- Pulmonary ---
Subjective HPI/Critical Care Issues: The patient is awake and alert. She slept well last night and feels better this morning. She continues to have a significant oxygen requirement, however she is now on oxygen pendent at 10 L nasal cannula. Her saturations remain in the low 90s. Objective Current Medications: Current Medications Sig/Tash Start time Last Medication Dose Route Stop Time Status Admin Acetaminophen 650 MG Q6 PRN 08/08 0245 AC PO Albuterol Sulfate 3 ML EVERY 4 HRS/AWAKE 08/08 1600 AC 08/11 INH 0822 Atorvastatin Calcium 10 MG 1700 08/08 1700 AC 08/10 PO 1718 Azithromycin 500 MG DAILY 08/08 0400 AC 08/11 Dextrose/Water 250 ML IV 0946 Baclofen 30 MG 0800,1200,1600,2000 08/09 1000 AC 08/11 PO 0857 Bisacodyl 5 MG DAILY PRN 08/10 1730 AC 08/10 PO 1940 Bisacodyl 10 MG DAILY PRN 08/10 1730 AC 08/10 MI 1939 Ceftriaxone Sodium 1,000 MG 0600 08/08 0600 AC 08/11 IV 0543 Diazepam 5 MG DAILY PRN 08/08 0330 AC 08/11 PO 0000 Docusate Sodium 100 MG DAILY 08/10 1101 AC 08/11 PO 0857 Enoxaparin Sodium 40 MG DAILY 08/08 1000 AC 08/11 SC 0856 Furosemide 40 MG DAILY 08/11 1000 AC 08/11 PO 0936 Glatiramer Acetate 40 MG 08/09 2100 AC 08/09 SC 2203 Guaifenesin 600 MG Q12 08/08 2317 AC 08/11 PO 0858 Insulin Aspart 0 TIDAC 08/08 08 AC 08/10 SC 1138 Levothyroxine Sodium 0.075 MG DAILY AC 08/14 07 AC PO 08/14 0701 Levothyroxine Sodium 0.05 MG DAILY AC 08/11 0700 AC 08/11 PO 08/13 0701 0543 Omeprazole 40 MG DAILY AC 08/08 07 AC 08/11 PO 0543 Oxymetazoline HCl 2 SPRAY BID 08/08 2219 AC 08/10 EMILY 2106 Patient Medication 1 ED .STK-MED ONE 08/10 1418 IN Teaching ED 08/10 1419 Patient Own 1 UNIT DAILY 08/10 1130 AC 08/11 Medication PO 0858 Polyethylene Glycol 17 GM DAILY 08/09 1000 AC 08/11 PO 0852 Psyllium Hydrophilic 1 PAC BID 08/10 1100 AC 08/11 Mucilloid PO 0852 Senna/Docusate Sodium 1 TAB BID PRN 08/08 0330 AC 08/10 PO 1139 Sertraline HCl 50 MG DAILY 08/08 1000 AC 08/11 PO 0937 Simethicone 40 MG Q6P PRN 08/09 0115 AC 08/11 PO 0907 Sodium Chloride 2 SPRAY Q4P PRN 08/09 2030 AC 08/09 EMILY 2202 Tramadol HCl 50 MG Q6 PRN 08/08 0400 AC 08/10 PO 0941 Vital Signs & I&O Last 24 Hrs of Vitals and I&O: Vital Signs Date Time Temp Pulse Resp B/P Pulse O2 O2 Flow FiO2 Ox Delivery Rate 08/11 0825 91 Nasal 10L Cannula 08/11 0655 98.1 59 20 134/74 93 10L 08/11 0537 92 Nasal 10L Cannula 08/11 0100 92 BIPAP 10L 08/11 0000 CPAP 08/10 2322 98.7 66 20 142/78 94 BIPAP 10L 08/10 2300 93 BIPAP 10L 08/10 1618 94 Nasal 10L Cannula 08/10 1600 Nasal 10L Cannula 08/10 1443 98.0 66 20 120/55 92 08/10 1441 Nasal 10L Cannula 08/10 1432 Nasal 10L Cannula 08/10 1231 94 Nasal 10L Cannula 08/10 1208 95 Nasal 50% Cannula 08/10 1115 94 Nasal 50% Cannula Intake & Output 08/11 1600 08 0800 08/11 0000 Intake Total 380 250 Output Total 1 650 Balance 379 -400 Intake, IV 20 10 Intake, Oral 360 240 Output, Stool 1 Output, Urine 650 Exam General Appearance: no apparent distress, alert, anxious, obese Head: atraumatic, normal appearance Neck: supple Respiratory: quiet respiration, decreased breath sounds Cardiovascular: regular rate/rhythm (S1 and S2 heard, distant) Abdomen: normal bowel sounds, soft, non-tender Extremities: chronic lower extremity edema Skin: intact, normal color, warm/dry Diagnostic Data CXR Findings: 1. Suspect central vascular congestion superimposed upon pulmonary arterial hypertension and dilated cardiomyopathy. Please correlate clinically to exclude mild interstitial edema. 2. Bibasilar linear subsegmental atelectasis. Impression/Plan Impression/Plan Impression/Plan: 1. Status post mechanical fall. 2. Ongoing hypoxemic respiratory failure secondary to atelectasis versus superimposed pneumonia. 3. Urine culture positive for gram-negative rods. 4. Recent episode of bronchitis. 5. History of advanced multiple sclerosis with ambulatory dysfunction. 6. Urinary retention secondary to spastic bladder. 8. Lau-vuhctcy-adlvkcvcq diabetes. 9. Obstructive sleep apnea, on nasal CPAP. 10. Chronic constipation. 11. Severe pulmonary hypertension which is multifactorial - the patient had a right and left heart cath in the past which demonstrated extremely severe pulmonary hypertension. She is not a candidate for vasodilator therapy. 12. Klebsiella UTI? on Ceftriaxone. Recommendations: * Continue ceftriaxone and azithromycin. * Incentive spirometry for atelectasis prevention. * Nebs/TRC to continue. * Continue nocturnal CPAP. * Increase activity, PT as tolerated. * The patient is interested in going to [place] for short-term rehabilitation upon discharge. Because of her ongoing hypoxia and high oxygen requirement, we need to consider [facility] referral. She does not want to go to [facility]. * Patient refuses VQ scan. * Continue all supportive care.
--- NOTE | 2016-08-11 12:43 | NUR ---
DISCUSSED WITH PHARMACY ABOUT MED PATIENT BROUGHT FROM HOME. PHARMACY COULD NOT VERIFY MED FOR NON FORMULARY. DISCUSSED WITH PATIENT AND FAMILY ABOUT MEDICINE BEING NOT VERIFIED BY PHARMACY.
[2016-08-11 14:13] VITALS: BP 125/70
[2016-08-11 23:17] VITALS: BP 130/70
--- NOTE | 2016-08-12 05:49 | PN- Housestaff ---
RUMA DARNELL,[facility] 08/12/16 0548: Subjective Follow-up For: Pneumonia Subjective: Ms Campoverde was examined this morning. Resting comfortably in bed. She reports no issues overnight. Patient states that her symptoms have drastically improved. She states that she feels that she we may be able to titrate down the oxygen owing to the dose of Lasix yesterday. Ms. Campoverde does report of subjective cough. Cough is productive in sputum [id number], nonpurulent and no hemoptysis reported. Patient also reports that at the present moment she is currently pain-free. She is not complaining of any back as she was yesterday. Patient reports a good appetite and is tolerating by mouth intake well. She denies any fever, chills, nausea, vomiting. Review of Systems Constitutional: Reports: see HPI. Objective Last 24 Hrs of Vital Signs/I&O Vital Signs Date Time Temp Pulse Resp B/P Pulse O2 O2 Flow FiO2 Ox Delivery Rate 08/12 0706 98.0 91 19 126/70 93 Room Air 08/12 0521 92 Nasal 10L Cannula 08/12 0122 BIPAP 10L 08/12 0000 CPAP 08/11 2317 98.3 89 19 130/70 91 Nasal Cannula 08/11 2259 94 BIPAP 10L 08/11 1715 90 Nasal 10L Cannula 08/11 1600 Nasal 10L Cannula 08/11 1413 98.1 90 19 125/70 91 /08 1114 Nasal 10L Cannula 08/11 0825 91 Nasal 10L Cannula Intake & Output 08/12 0800 / 0000 08/11 1600 Intake Total 360 700 200 Output Total 450 2100 Balance 360 250 -1900 Intake, Oral 360 700 200 Output, Urine 450 2100 Physical Exam General Appearance: Alert, Oriented X3, Cooperative Cardiovascular: Normal S1, Normal S2, No Murmurs Lungs: Mild Basillar Crackles Abdomen: Normal Bowel Sounds, Soft, No Tenderness Neurological: Normal Speech Extremities: No Cyanosis, No Edema Current Medications: Current Medications Sig/Tash Start time Last Medication Dose Route Stop Time Status Admin Acetaminophen 650 MG Q6 PRN 08/08 0245 AC PO Albuterol Sulfate 3 ML EVERY 4 HRS/AWAKE / 1600 AC / INH 2040 Atorvastatin Calcium 10 MG 1700 08/08 1700 AC 03/ PO 1556 Azithromycin 500 MG DAILY 08/08 0400 DC 08/11 Dextrose/Water 250 ML IV 0946 Baclofen 30 MG 0800,1200,1600,2000 08/09 1000 AC 08/11 PO 2156 Bisacodyl 5 MG DAILY PRN 08/10 1730 AC 08/10 PO 1940 Bisacodyl 10 MG DAILY PRN 08/10 1730 AC 08/10 SD 1939 Ceftriaxone Sodium 1,000 MG 0600 08/08 0600 DC 08/11 IV 0543 Diazepam 5 MG DAILY PRN 08/08 0330 AC 08/11 PO 0000 Docusate Sodium 100 MG DAILY 08/10 1101 AC 08/11 PO 0857 Enoxaparin Sodium 40 MG DAILY 08/08 1000 AC 08/11 SC 0856 Furosemide 40 MG DAILY 08/11 1000 AC 08/11 PO 0936 Furosemide 40 MG .STK-MED ONE 08/11 0839 DC PO 08/11 0840 Glatiramer Acetate 40 MG 08/09 2100 AC 08/11 SC 2157 Guaifenesin 600 MG Q12 08/08 2317 AC 08/11 PO 2156 Insulin Aspart 0 TIDAC 08/08 0800 AC 08/10 SC 1138 Levothyroxine Sodium 0.075 MG DAILY AC 08/14 0700 AC PO 08/14 0701 Levothyroxine Sodium 0.05 MG DAILY AC 08/11 0700 AC 08/12 PO 08/13 0701 0654 Omeprazole 40 MG DAILY AC 08/08 0700 AC 08/12 PO 0654 Oxymetazoline HCl 2 SPRAY BID 08/08 2219 AC 08/11 EMILY 2156 Patient Own 1 UNIT DAILY 08/10 1130 AC 08/11 Medication PO 0858 Polyethylene Glycol 17 GM DAILY 08/09 1000 AC 08/11 PO 0852 Psyllium Hydrophilic 1 PAC BID 08/10 1100 AC 08/11 Mucilloid PO 2155 Senna/Docusate Sodium 1 TAB BID PRN 08/08 0330 AC 08/10 PO 1139 Sertraline HCl 50 MG DAILY 08/08 1000 AC 08/11 PO 0937 Simethicone 40 MG Q6P PRN 08/09 0115 AC 08/11 PO 0907 Sodium Chloride 2 SPRAY Q4P PRN 08/09 2030 AC 08/09 EMILY 2202 Tramadol HCl 50 MG Q6 PRN 08/08 0400 AC 08/10 PO 0941 Assessment/Plan Assessment: Ms. Campoverde is a pleasant 76 year old female with PMH Mutliple sclerosis with ambulatory dysfunction, and oxygen dependance urinary retention secondary to spastic bladder, non-insulin dependant diabetes mellitus, VALARIE on nasal CPAP, chronic constipation, HLD, anxiety, depression, obesity and chronic lower extremity edema who presented to [place] s/p fall without loss of consciousness, palpitations or headache and found to by hypoxic on arrival. Acute on chronic hypoxic respiratory failure Likely secondary to community acquired pneumonia, however trauma and pulmonary embolism remain on differential Hx of recent URI failing outpatient azithromycin Patient currently on high flow oxygen with O2 saturations only in the low 90s Continue ceftriaxone and azithromycin daily, monitor for fevers. final doses received this morning. Augmentin to commence from 08/13/2016 F/U blood and LRC final results (urine strep and legionella negative) V/Q scan ordered 08/10/2016 declined Continue incentive spirometry, TRC nebs, nocturnal CPAP Patient no longer needs continuous pulse oximetry, stable to transfer to Of note, no active cardiac issues, cardio consult appreciated Currently on 10L via NC. Mechanical Fall Patient is dependent upon a wheelchair at home for ambulation and is able only to perform transfers Multiple imaging studies negative for acute fracture PT eval appreciated Patient interested in [facility] on discharge Multiple sclerosis Continue baclofen and valium daily Requested patient's bring in home Copaxone today so pharmacy may verify and patient can receive this med Follow up with Dr. Debbie MD after discharge Urinary retention Continue morris catheter. Extensively spoke to the patient about discontinuing Morris and expected to her that this is indeed a risk for further infection and possibly worsening urinary tract infection and symptoms. Patient is adamant about being continued on Morris for the next 24 hours owing to recent fall and back discomfort. We will renew the Morris for now and likely reconsider in the a.m. Morris discontinued Urinary culture shows gram negative rods: Klebsiella Penumoniae Patient is already on ceftriaxone for PNA. Will likely convert to PO abx in 24 hours. NIDDM Continue accuchecks TIDAC/HS, Blood sugars: 133-->116-->103-->116-->131 Hold oral hypoglycemics, continue NSS Obstructive Sleep Apnea Continue nocturnal CPAP Hypertension hold lasix, aldactone, cardura, restart when stable Hyperlipidemia - Continue Atorvastatin 10mg PO Daily Hypothyroidism Continue Levothyroxine 50mg PO Daily Depression Continue Zoloft 50mg PO Daily DNR/DNI Diabetic diet DVTP: Lovenox SC Problem List: 1. Acute respiratory failure with hypoxia 2. Shortness of breath 3. VALARIE (obstructive sleep apnea) 4. Pulmonary hypertension Pain Ratin Pain Location: No Pain reported Pain Goal: Remain pain free Pain Plan: tramadol Tomorrow's Labs & Rationales: BEP: Monitor Electrolytes in the setting of Lasixu Diuresis Consulting Request: Consulting Specialty: Pulmonary Disease LARISSA PEREZ MD 08/12/16 1147: Attending MD Review Statement Attending Statement Attending MD Statement: examined this patient, discuss w/resident/PA/RN HEART, agreed w/resident/PA/RN HEART, reviewed EMR data (avail), discussed with nursing, discussed with case mgmt, reviewed images, amended to note Attending Assessment/Plan: Patient seen and examined, feeling almost the same. Still requiring significant amount of oxygen. Now agreeable to DC Morris. Vital Signs Date Time Temp Pulse Resp B/P Pulse O2 O2 Flow FiO2 Ox Delivery Rate 08/12 0842 92 Nasal 9L Cannula 08/12 0706 98.0 91 19 126/70 93 Room Air 08/12 0521 92 Nasal 10L Cannula 08/12 0122 BIPAP 10L 08/12 0000 CPAP 08/11 2317 98.3 89 19 130/70 91 Nasal Cannula 08/11 2259 94 BIPAP 10L 08/11 1715 90 Nasal 10L Cannula 08/11 1600 Nasal 10L Cannula 08/11 1413 98.1 90 19 125/70 91 on exam; aox3, nad. cv; s1,s2 rrr resp; mostly clear but decreased bs overall. abd; soft, nt, bs+ ext: trace edema. no labs today. A/P; 76 y/o F with pmh sig for multiple sclerosis, morbid obesity, obesity hypoventilation syndrome, T2DM, HTN, HLD, spastic bladder admitted with mechanical fall and acute hypoxemic respiratory failure and uti. Still requiring significant amount of oxygen. We can switch antibiotics to oral starting tomorrow. We will discontinue the Morris catheter. We will try to taper her O2 if she can tolerate. Continue TRC nebs, the current medications including Lasix. DVT px: Lovenox. Patient will need to go to rehabilitation upon discharge within the next day or 2 hopefully.
[2016-08-12 07:06] VITALS: BP 126/70
--- NOTE | 2016-08-12 09:46 | PN- Pulmonary ---
Subjective HPI/Critical Care Issues: The patient is awake and alert. She is feeling better overall. Her oxygen requirement has decreased to 9 lpm, with oxygen saturations in the low to mid 90s. She has no significant sputum production. She denies hemoptysis. She has no chest pain, pleuritic pain, fever or chills. Objective Current Medications: Current Medications Sig/Tash Start time Last Medication Dose Route Stop Time Status Admin Acetaminophen 650 MG Q6 PRN 08/08 0245 AC PO Albuterol Sulfate 3 ML EVERY 4 HRS/AWAKE 08/08 1600 AC 08/12 INH 0835 Atorvastatin Calcium 10 MG 1700 08/08 1700 AC 08/11 PO 1556 Azithromycin 500 MG DAILY 08/12 1000 AC Dextrose/Water 250 ML IV Azithromycin 500 MG DAILY 08/08 0400 DC 08/11 Dextrose/Water 250 ML IV 0946 Baclofen 30 MG 0800,1200,1600,2000 08/09 1000 AC 08/11 PO 2156 Bisacodyl 5 MG DAILY PRN 08/10 1730 AC 08/10 PO 1940 Bisacodyl 10 MG DAILY PRN 08/10 1730 AC 08/10 [place] 1939 Ceftriaxone Sodium 1,000 MG Q24H 08/12 0900 AC IV Ceftriaxone Sodium 1,000 MG 0600 08/08 0600 DC 08/11 IV 0543 Diazepam 5 MG DAILY PRN 08/08 0330 AC 08/11 PO 0000 Docusate Sodium 100 MG DAILY 08/10 1101 AC 08/11 PO 0857 Enoxaparin Sodium 40 MG DAILY 08/08 1000 AC 08/11 SC 0856 Furosemide 40 MG DAILY 08/11 1000 AC 08/11 PO 0936 Glatiramer Acetate 40 MG 08/09 2100 AC 08/11 SC 2157 Guaifenesin 600 MG Q12 08/08 2317 AC 08/11 PO 2156 Insulin Aspart 0 TIDAC 08/08 0800 AC 08/10 SC 1138 Levothyroxine Sodium 0.075 MG DAILY AC 08/14 07 AC PO 08/14 07 Levothyroxine Sodium 0.05 MG DAILY AC 08/11 0700 AC 08/12 PO 08/13 0701 0654 Omeprazole 40 MG DAILY AC 08/08 0700 AC 08/12 PO 0654 Oxymetazoline HCl 2 SPRAY BID 08/08 2219 AC 08/11 EMILY 2156 Patient Own 1 UNIT DAILY 08/10 1130 AC 08/11 Medication PO 0858 Polyethylene Glycol 17 GM DAILY 08/09 1000 AC 08/11 PO 0852 Psyllium Hydrophilic 1 PAC BID 08/10 1100 AC 08/11 Mucilloid PO 2155 Senna/Docusate Sodium 1 TAB BID PRN 08/08 0330 AC 08/10 PO 1139 Sertraline HCl 50 MG DAILY 08/08 1000 AC 08/11 PO 0937 Simethicone 40 MG Q6P PRN 08/09 0115 AC 08/11 PO 0907 Sodium Chloride 2 SPRAY Q4P PRN 08/09 2030 AC 08/09 EMILY 2202 Tramadol HCl 50 MG Q6 PRN 08/08 0400 AC 08/10 PO 0941 Vital Signs & I&O Last 24 Hrs of Vitals and I&O: Vital Signs Date Time Temp Pulse Resp B/P Pulse O2 O2 Flow FiO2 Ox Delivery Rate 08/12 0842 92 Nasal 9L Cannula 08/12 0706 98.0 91 19 126/70 93 Room Air 08/12 0521 92 Nasal 10L Cannula 08/12 0122 BIPAP 10L 08/12 0000 CPAP 08/11 2317 98.3 89 19 130/70 91 Nasal Cannula 08/11 2259 94 BIPAP 10L 08/11 1715 90 Nasal 10L Cannula 08/11 1600 Nasal 10L Cannula 08/11 1413 98.1 90 19 125/70 91 08 1114 Nasal 10L Cannula Intake & Output 08/12 1600 08/12 0800 08/12 0000 Intake Total 360 700 Output Total 450 Balance 360 250 Intake, Oral 360 700 Output, Urine 450 Exam General Appearance: no apparent distress, alert, anxious, obese Head: atraumatic, normal appearance Neck: supple Respiratory: quiet respiration, decreased breath sounds Cardiovascular: regular rate/rhythm (S1 and S2 heard, distant) Abdomen: normal bowel sounds, soft, non-tender Extremities: chronic lower extremity edema Skin: intact, normal color, warm/dry Impression/Plan Impression/Plan Impression/Plan: 1. Status post mechanical fall. 2. Ongoing hypoxemic respiratory failure secondary to atelectasis versus superimposed pneumonia. PE is within the differential diagnosis, cannot do CTA due to GFR, patient refused VQ scan. 3. Urine culture positive for Klebsiella. 4. Recent episode of bronchitis - clinically improved. 5. History of advanced multiple sclerosis with ambulatory dysfunction. 6. Urinary retention secondary to spastic bladder. 8. Ksg-bulpnvh-jjikbxijt diabetes. 9. Obstructive sleep apnea, on nasal CPAP. 10. Chronic constipation. 11. Severe pulmonary hypertension which is multifactorial - the patient had a right and left heart cath in the past which demonstrated extremely severe pulmonary hypertension. She is not a candidate for vasodilator therapy. Contributes to ongoing hypoxemia. Recommendations: * Continue ceftriaxone and azithromycin. Will change to PO antibiotics tomorrow. * Incentive spirometry for atelectasis prevention. * Nebs/TRC to continue. * Continue nocturnal CPAP. * Increase activity, PT as tolerated. * The patient is interested in going to [place] for short-term rehabilitation upon discharge. Continue with discharge planning. * Patient refuses VQ scan. * Continue Lasix for negative fluid balance. * Continue all supportive care.
--- NOTE | 2016-08-12 13:45 | Patient Discharge Instructions ---
Discharge Instructions General Discharge Information You were seen/treated for: Pneumonia Urinary Tract Infection MS Watch for these problems: Fever, nausea, vomiting, chills, weakness, increased generalized edema. Palpitations. Chest pain. Shortness of breath. If you have any adverse reactions from any of the medications prescribed please inform your primary care physician and you may be required to come back to the emergency department. Thank you for allowing us to be part of your care. Special Instructions: Please follow up with your PCP in one week. Please inform your PCP about the medication changes we have made. Please follow up with the movement assembly final inspector, Dr Haley within one week. We have provided you with a referral for 08/19/2016. Please follow up with the Neurologist, Dr Lewis within two weeks. We have provided you with a referral for 08/23/2016. Diet Continue normal diet: No Recommended Diet: Heart Healthy Activity Full Activity/No Limits: No Activity Self Limited: Yes (As Tolerated) Acute Coronary Syndrome Inclusion Criteria At DC or during hospital stay patient has or had the following: ACS DIAGNOSIS No Discharge Core Measures Meds if any: Prescribed or Continued at Discharge Meds if any: NOT Prescribed or Continued at Discharge Congestive Heart Failure Inclusion Criteria At DC or during hospital stay patient has or had the following: CHF DIAGNOSIS No Discharge Core Measures Meds if any: Prescribed or Continued at Discharge Meds if any: NOT Prescribed or Continued at Discharge Cerebrovascular accident Inclusion Criteria At DC or during hospital stay patient has or had the following: CVA/TIA Diagnosis No Discharge Core Measures Meds if any: Prescribed or Continued at Discharge Meds if any: NOT Prescribed or Continued at Discharge Venous thromboembolism Inclusion Criteria VTE Diagnosis No VTE Type NONE VTE Confirmed by (Test) NONE Discharge Core Measures - Per Current guidelines, there needs to be overlap - treatment for the first 5 days of Warfarin therapy. - If discharged on Warfarin prior to 5 days of - overlap therapy, the patient will need to be - assessed for post discharge needs including - *Post discharge parental anticoagulation - *Warfarin and/or parental anticoagulation education - *Follow up date to check INR post discharge At least 5 days overlap therapy as Inpatient No Meds if any: Prescribed or Continued at Discharge Note: Overlap Therapy is Warfarin and Anticoagulant Meds if any: NOT Prescribed or Continued at Discharge
[2016-08-12 14:13] VITALS: BP 130/80
--- NOTE | 2016-08-12 20:26 | NUR ---
TATE REMOVED AT 1630, PT VOIDED IN BED [facility]MA[facility] AT 1730
--- NOTE | 2016-08-12 21:13 | ECHOCARDIOGRAM REPORT ---
JENIFFER DUEÑAS Age: 76 : 1940 Gender: F Exam Date: 08/12/2016 19:43 Exam Location: [facility] Ht (in): 73 Wt (lb): 219 BSA: 2.28 BP: 130 / 80 Ordering Physician: Rolando OLIVEIRA MD Referring Physician: Carolina Washburn MD Technologist: Lacy Enamorado RONNA Room Number: 236 Indications: RESPIRATORY FAILURE Rhythm: Sinus Technical Quality: Fair, Technically difficult study FINDINGS Left Ventricle Normal size left ventricle. Abnormal septal motion. Flattened septum in systole consistent with right ventricle pressure overload. Normal left ventricular ejection fraction estimated at 65-70%. Right Ventricle Right ventricular dilatation. Right Atrium Right atrial dilatation. Left Atrium Mitral Valve Mitral valve thickened. Moderate mitral annular calcification. Mild mitral regurgitation. Aortic Valve Trileaflet aortic valve. Diffuse thickening (sclerosis) of the aortic valve cusps without reduced excursion. No aortic stenosis. No aortic regurgitation. Tricuspid Valve Tricuspid valve not well visualized, grossly normal. Moderate-to- severe tricuspid regurgitation. Right ventricular systolic pressure estimated to be elevated at 80 mmHg. Pulmonic Valve Pulmonic valve not well visualized, grossly normal. Mild pulmonic regurgitation. Pericardium Small pericardial effusion. Great Vessels Normal size aortic root and proximal ascending aorta. CONCLUSIONS 1. Mild to moderate aortic sclerosis is present with no valvular stenosis or insufficiency. 2. Mitral leaflet thickening is present with moderate anular calcification and mild mitral insufficiency with left atrial enlargement. 3. A small pericardial effusion is present which is hemodynamically insignificant. 4. The left ventricular chamber size is normal with a normal ejection fraction. Abnormal septal motion is present. 5. Enlargement of the right heart chambers is present with moderately severe tricuspid insufficiency and mild pulmonic insufficiency with severe pulmonary hypertension and an estimated RV systolic pressure of at least 80 mmHg. Carolina Washburn M.D. (Electronically Signed) Final Date: 12 August 2016 21:12 MEASUREMENTS (Male / Female) Normal Values 2D ECHO LV Diastolic Diameter PLAX 4.0 cm 4.2 - 5.9 / 3.9 - 5.3 cm LV Systolic Diameter PLAX 2.4 cm 2.1 - 4.0 cm LV Fractional Shortening PLAX 40.0 % 25 - 46 % LV Ejection Fraction 2D Teich 71.2 % IVS Diastolic Thickness 1.3 cm LVPW Diastolic Thickness 1.2 cm LV Relative Wall Thickness 0.6 RV Internal Dim ED PLAX 3.0 cm 1.9 - 3.8 cm LVOT Diameter 1.8 cm Aortic Root Diameter 2.6 cm LA Systolic Diameter LX 4.9 cm 3.0 - 4.0 / 2.7 - 3.8 cm LA Volume 46.0 cm 18 - 58 / 22 - 52 cm Ascending Aorta Diameter 2.9 cm DOPPLER AV Peak Velocity 196.0 cm/s AV Peak Gradient 15.4 mmHg AV Mean Velocity 134.0 cm/s AV Mean Gradient 8.0 mmHg AV Velocity Time Integral 45.3 cm LVOT Peak Velocity 158.0 cm/s LVOT Peak Gradient 10.0 mmHg LVOT Mean Velocity 103.0 cm/s LVOT Mean Gradient 5.0 mmHg LVOT Velocity Time Integral 28.5 cm LVOT Stroke Volume 72.5 cm AV Area Cont Eq vti 1.6 cm AV Area Cont Eq pk 2.1 cm MV Peak Velocity 143.0 cm/s MV Peak Gradient 8.2 mmHg MV Mean Velocity 67.9 cm/s MV Mean Gradient 2.0 mmHg Mitral E Point Velocity 63.1 cm/s Mitral A Point Velocity 138.0 cm/s Mitral E to A Ratio 0.5 MV PHT Velocity 90.2 cm/s MV Deceleration [place] 202.0 cm/s MV Pressure Half Time 134.0 ms MV Area PHT 1.6 cm MV Deceleration Time 499.0 ms TR Peak Velocity 432.0 cm/s TR Peak Gradient 74.6 mmHg Right Atrial Pressure 5.0 mmHg Pulmonary Artery Systolic Pressu 79.6 mmHg Right Ventricular Systolic Press 79.6 mmHg PV Peak Velocity 127.0 cm/s PV Peak Gradient 6.5 mmHg PV Mean Velocity 64.6 cm/s PV Mean Gradient 2.0 mmHg PV Velocity Time Integral 21.2 cm LV E' Lateral Velocity 5.7 cm/s Mitral E to LV E' Lateral Ratio 11.2 LV E' Septal Velocity 4.9 cm/s Mitral E to LV E' Septal Ratio 13.0
[2016-08-12 22:33] VITALS: BP 150/90
--- NOTE | 2016-08-13 06:42 | PN- Housestaff ---
See Addendum Subjective Follow-up For: Pneumonia UTI HX of MS Subjective: Ms. Campoverde was seen and examined this morning. Resting comfortably in bed. Patient states that she had an uneventful evening. She does state she was unable to sleep owing to the fact that she does feel anxious about potential placement and long-term discharge plans. She does state that her Morris was taken out yesterday and has continued to diurese appropriately. She denies any dysuria, frequency, urinary hesitation or foul-smelling urine. Patient states that she is currently pain-free. She is tolerating by mouth intake well. She continues to have supplemental oxygen via nasal cannula on 8 L. Patient denies any fever, chills, nausea or vomiting. Review of Systems Constitutional: Reports: see HPI. Objective Last 24 Hrs of Vital Signs/I&O Vital Signs Date Time Temp Pulse Resp B/P Pulse O2 O2 Flow FiO2 Ox Delivery Rate 08/13 0742 98.4 77 20 150/90 92 Nasal 8L Cannula 08/13 0614 97 Nasal 8L Cannula 08/13 0000 CPAP 08/12 2258 93 BIPAP 9L 08/12 2233 97.7 68 20 150/90 91 Nasal 8L Cannula 08/12 1615 88 Nasal 7.0L Cannula 08/12 1600 Nasal 8L Cannula 08/12 1413 97.6 64 20 130/80 90 Nasal 7.0L Cannula 08/12 1346 94 Nasal 7.0L Cannula 08/12 0842 92 Nasal 9L Cannula 08/12 0800 Nasal 10L Cannula Intake & Output 08/13 0800 08/13 0000 08/12 1600 Intake Total 897 875 6578 Output Total 195 052 2217 Balance 460 -232 -1200 Intake, IV 250 Intake, Oral 660 220 800 Output, Stool 2 Output, Urine 620 333 1431 Physical Exam General Appearance: Alert, Oriented X3, Cooperative Cardiovascular: Normal S1, Normal S2, No Murmurs Lungs: Clear to Auscultation, Decreased Breath Sounds Abdomen: Normal Bowel Sounds, Soft, No Tenderness Neurological: Normal Speech Extremities: No Clubbing, No Cyanosis, No Edema Vascular: Normal Pulses Current Medications: Current Medications Sig/Tash Start time Last Medication Dose Route Stop Time Status Admin Acetaminophen 650 MG Q6 PRN 08/08 0245 AC PO Albuterol Sulfate 3 ML EVERY 4 HRS/AWAKE 03/05 1600 AC 08/12 INH 2100 Amoxicillin/ 875 MG Q12 08/13 1000 AC Clavulanate Potassium PO Atorvastatin Calcium 10 MG 1700 08/08 1700 AC 08/12 PO 1745 Azithromycin 500 MG DAILY 08/12 1000 DC 08/12 Dextrose/Water 250 ML IV 0927 Baclofen 30 MG 0800,1200,1600,2000 08/09 1000 AC 08/12 PO 2133 Bisacodyl 5 MG DAILY PRN 08/10 1730 AC 08/10 PO 1940 Bisacodyl 10 MG DAILY PRN 08/10 1730 AC 08/10 [place] 1939 Ceftriaxone Sodium 1,000 MG Q24H 08/12 0900 DC 08/12 IV 0928 Diazepam 5 MG DAILY PRN 08/08 0330 AC 08/13 PO 0202 Docusate Sodium 100 MG 2200 08/12 2200 AC 08/12 PO 2229 Docusate Sodium 100 MG DAILY 08/10 1101 DC 08/12 PO 0928 Enoxaparin Sodium 40 MG DAILY 08/08 1000 AC 08/12 SC 0927 Furosemide 40 MG DAILY 08/11 1000 AC 08/12 PO 0934 Glatiramer Acetate 40 MG TUESDAY WED WEDNESDAY 08/09 2100 AC 08/11 SC 2157 Guaifenesin 600 MG Q12 08/08 2317 AC 08/12 PO 2133 Insulin Aspart 0 TIDAC 08/08 0800 AC 08/10 SC 1138 Levothyroxine Sodium 0.075 MG DAILY AC 08/14 0700 AC PO 08/14 0701 Levothyroxine Sodium 0.05 MG DAILY AC 08/11 0700 DC 08/13 PO 08/13 0701 0635 Naproxen 250 MG BID PRN 08/12 1045 AC PO Omeprazole 40 MG DAILY AC 08/08 0700 AC 08/13 PO 0635 Oxymetazoline HCl 2 SPRAY BID 08/08 2219 AC 08/12 EMILY 2145 Patient Medication 1 ED .STK-MED ONE 08/12 1402 DC Teaching ED 08/12 1403 Patient Own 1 UNIT DAILY 08/10 1130 AC 08/12 Medication PO 0929 Polyethylene Glycol 17 GM DAILY 08/09 1000 AC 08/12 PO 0928 Psyllium Hydrophilic 1 PAC 1000,1800 08/13 1000 AC Mucilloid PO Psyllium Hydrophilic 1 PAC BID 08/10 1100 DC 08/12 Mucilloid PO 2139 Senna/Docusate Sodium 1 TAB BID PRN 08/08 0330 AC 08/10 PO 1139 Sertraline HCl 50 MG DAILY 08/08 1000 AC 08/12 PO 0928 Simethicone 40 MG Q6P PRN 08/09 0115 AC 08/12 PO 1333 Sodium Chloride 2 SPRAY Q4P PRN 08/09 2030 AC 08/12 EMILY 2145 Tramadol HCl 50 MG Q6 PRN 08/08 0400 AC 08/10 PO 0941 Last 24 Hrs of Lab/[place]inder Results Last 24 Hrs of Labs/Mics: Laboratory Tests 08/13/16 0610: Sodium Pending, Potassium Pending, Chloride Pending, Carbon Dioxide Pending, Anion Gap Pending, BUN Pending, Creatinine Pending, BUN/Creatinine Ratio Pending Assessment/Plan Assessment: Ms. Campoverde is a pleasant 76 year old female with PMH Mutliple sclerosis with ambulatory dysfunction, and oxygen dependance urinary retention secondary to spastic bladder, non-insulin dependant diabetes mellitus, VALARIE on nasal CPAP, chronic constipation, HLD, anxiety, depression, obesity and chronic lower extremity edema who presented to [place] [facility] without loss of consciousness, palpitations or headache and found to by hypoxic on arrival. Acute on chronic hypoxic respiratory failure Likely secondary to community acquired pneumonia, however trauma and pulmonary embolism remain on differential Hx of recent URI failing outpatient azithromycin Patient currently on high flow oxygen with O2 saturations only in the low 90s Continue ceftriaxone and azithromycin daily, monitor for fevers. final doses received this morning-->Amoxicillin/Clavulanate Potassium F/U blood and LRC final results (urine strep and legionella negative) V/Q scan ordered 08/10/2016 declined Continue incentive spirometry, TRC nebs, nocturnal CPAP Patient no longer needs continuous pulse oximetry, stable to transfer to Of note, no active cardiac issues, cardio consult appreciated Currently on 8L via ND. Mechanical Fall Patient is dependent upon a wheelchair at home for ambulation and is able only to perform transfers Multiple imaging studies negative for acute fracture PT eval appreciated Patient interested in [facility] on discharge Multiple sclerosis Continue baclofen and valium daily Requested patient's bring in home Copaxone today so pharmacy may verify and patient can receive this med Follow up with Dr. Debbie MD after discharge Urinary retention Continue morris catheter. Extensively spoke to the patient about discontinuing Morris and expected to her that this is indeed a risk for further infection and possibly worsening urinary tract infection and symptoms. Patient is adamant about being continued on Morris for the next 24 hours owing to recent fall and back discomfort. We will renew the Morris for now and likely reconsider in the a.m. Morris discontinued Urinary culture shows gram negative rods: Klebsiella Penumoniae Patient is already on ceftriaxone for PNA. Will likely convert to PO antibiotics. NIDDM Continue accuchecks TIDAC/HS, Blood sugars: 133-->116-->103-->116-->131-->134-->120 Hold oral hypoglycemics, continue NSS Obstructive Sleep Apnea Continue nocturnal CPAP Hypertension Conitinue Lasix, 40 mg PO Hyperlipidemia - Continue Atorvastatin 10mg PO Daily Hypothyroidism Continue Levothyroxine 50mg PO Daily Depression Continue Zoloft 50mg PO Daily DNR/DNI Diabetic diet DVTP: Lovenox SC Problem List: 1. Pulmonary hypertension 2. Inability to ambulate due to multiple joints 3. Epistaxis 4. Anterior epistaxis Pain Ratin Pain Location: No Pain Reported Pain Goal: Remain pain free Pain Plan: Tramadol Tomorrow's Labs & Rationales: BEP Consulting Request: Consulting Specialty: Pulmonary Disease Consulting Specialty: Pulmonary Disease
[2016-08-13 07:42] VITALS: BP 150/90
--- NOTE | 2016-08-13 10:55 | PN- Pulmonary ---
Subjective HPI/Critical Care Issues: The patient is awake and alert. She reports feeling improved overall. She is no longer experiencing significant pain. Her oxygenation is slowly improving, noting that she is 94% on 8 L Oxymizer. There were no significant overnight events reported. Objective Current Medications: Current Medications Sig/Tash Start time Last Medication Dose Route Stop Time Status Admin Acetaminophen 650 MG Q6 PRN 08/08 0245 AC PO Albuterol Sulfate 3 ML EVERY 4 HRS/AWAKE 08/08 1600 AC 08/13 INH 0851 Amoxicillin/ 875 MG Q12 08/13 1000 AC 08/13 Clavulanate Potassium PO 0948 Atorvastatin Calcium 10 MG 1700 08/08 1700 AC 08/12 PO 1745 Baclofen 30 MG 0800,1200,1600,2000 08/09 1000 AC 08/13 PO 0811 Bisacodyl 5 MG DAILY PRN 08/10 1730 AC 08/10 PO 1940 Bisacodyl 10 MG DAILY PRN 08/10 1730 AC 08/10 MO 1939 Diazepam 5 MG DAILY PRN 08/08 0330 AC 08/13 PO 0202 Docusate Sodium 100 MG 2200 08/12 2200 AC 08/12 PO 2229 Docusate Sodium 100 MG DAILY 08/10 1101 DC 08/12 PO 0928 Enoxaparin Sodium 40 MG DAILY 08/08 1000 AC 08/13 SC 0949 Furosemide 40 MG DAILY 08/11 1000 AC 08/13 PO 0948 Glatiramer Acetate 40 MG MoWeFr@2100 08/13 2100 AC SC Glatiramer Acetate 40 MG 08/09 2100 DC 08/11 SC 2157 Guaifenesin 600 MG Q12 08/08 2317 AC 08/13 PO 0948 Insulin Aspart 0 TIDAC 08/08 0800 AC 08/10 SC 1138 Levothyroxine Sodium 0.075 MG DAILY AC 08/14 0700 AC PO 08/14 0701 Levothyroxine Sodium 0.05 MG DAILY AC 08/11 0700 DC 08/13 PO 08/13 0701 0635 Naproxen 250 MG BID PRN 08/12 1045 AC PO Omeprazole 40 MG DAILY AC 08/08 0700 AC 08/13 PO 0635 Oxymetazoline HCl 2 SPRAY BID 08/08 2219 AC 08/12 EMILY 2145 Patient Medication 1 ED .STK-MED ONE 08/12 1402 MN Teaching ED 08/12 1403 Patient Own 1 UNIT DAILY 08/10 1130 AC 08/13 Medication PO 0949 Polyethylene Glycol 17 GM DAILY 08/09 1000 AC 08/13 PO 0949 Psyllium Hydrophilic 1 PAC 1000,1800 08/13 1000 AC 08/13 Mucilloid PO 0949 Psyllium Hydrophilic 1 PAC BID 08/10 1100 DC 08/12 Mucilloid PO 2139 Senna/Docusate Sodium 1 TAB BID PRN 08/08 0330 AC 08/10 PO 1139 Sertraline HCl 50 MG DAILY 08/08 1000 AC 08/13 PO 0948 Simethicone 40 MG Q6P PRN 08/09 0115 AC 08/12 PO 1333 Sodium Chloride 2 SPRAY Q4P PRN 08/09 2030 AC 08/12 EMILY 2145 Tramadol HCl 50 MG Q6 PRN 08/08 0400 AC 08/10 PO 0941 Vital Signs & I&O Last 24 Hrs of Vitals and I&O: Vital Signs Date Time Temp Pulse Resp B/P Pulse O2 O2 Flow FiO2 Ox Delivery Rate 08/13 0852 94 Nasal 8L Cannula 08/13 0742 98.4 77 20 150/90 92 Nasal 8L Cannula 08/13 0614 97 Nasal 8L Cannula 08/13 0000 CPAP 08/12 2258 93 BIPAP 9L 08/12 2233 97.7 68 20 150/90 91 Nasal 8L Cannula 08/12 1615 88 Nasal 7.0L Cannula 08/12 1600 Nasal 8L Cannula 08/12 1413 97.6 64 20 130/80 90 Nasal 7.0L Cannula 08/12 1346 94 Nasal 7.0L Cannula Intake & Output 08/13 1600 08/13 0800 08/13 0000 Intake Total 660 220 Output Total 200 452 Balance 460 -232 Intake, Oral 660 220 Output, Stool 2 Output, Urine 200 450 Patient 220 lb Weight Exam General Appearance: no apparent distress, alert, anxious, obese Head: atraumatic, normal appearance Neck: supple Respiratory: quiet respiration, decreased breath sounds Cardiovascular: regular rate/rhythm (S1 and S2 heard, distant) Abdomen: normal bowel sounds, soft, non-tender Extremities: chronic lower extremity edema Skin: intact, normal color, warm/dry Results Last 24 Hrs of Lab Results: Laboratory Tests 08/13/16 0610: Anion Gap 7, Estimated GFR > 60, BUN/Creatinine Ratio 28.8 H Impression/Plan Impression/Plan Impression/Plan: 1. Status post mechanical fall. 2. Ongoing hypoxemic respiratory failure secondary to atelectasis versus superimposed pneumonia. PE is within the differential diagnosis, cannot do CTA due to GFR, patient refused VQ scan. Oxygen requirement is slowly improving. 3. Urine culture positive for Klebsiella - Augmentin. 4. Recent episode of bronchitis - clinically improved. 5. History of advanced multiple sclerosis with ambulatory dysfunction. 6. Urinary retention secondary to spastic bladder. 8. [id number] diabetes. 9. Obstructive sleep apnea, on nasal CPAP. 10. Chronic constipation. 11. Severe pulmonary hypertension which is multifactorial - the patient had a right and left heart cath in the past which demonstrated extremely severe pulmonary hypertension. She is not a candidate for vasodilator therapy. Contributes to ongoing hypoxemia. Recommendations: * Complete antibiotic therapy. * Incentive spirometry for atelectasis prevention. * Nebs/TRC to continue. * Continue nocturnal CPAP. * Increase activity, PT as tolerated. * Continue Lasix for negative fluid balance. * Discharge planning. * Continue all supportive care.
[2016-08-13] MEDS ORDERED: AMOX-CLAV 875-1 EACH PO (11:11)
[2016-08-13] MEDS ORDERED: ALBUTEROL2.5 MG/3 M INH/SOL (11:39)
[2016-08-13 14:25] VITALS: BP 120/70
[2016-08-13 16:30] VITALS: BP 120/70
--- NOTE | 2016-08-13 16:58 | NUR ---
PT D/C TO STR; VSS, D/C PAPERS WITH [facility]. REPORT CALLED TO FACILITY PER AM NURSE
== END 2016-08-13 16:40 | DRG 193 ==
LOC: ENRESERVTM → ENRESERVDT → ERH 20:05 → ENPENDDIS 08-08 02:21 → ERHI 08-08 02:21 → 2NA 08-08 02:21 → 1NO 08-08 02:21 → EDBEDREQ 08-08 02:43 → 1NO 08-08 04:10 → 2NA 08-09 22:43
PROVIDERS: Physician Assistant; Student in an Organized Health Care Education/Training Program; ADMIT Student in an Organized Health Care Education/Training Program
DX: J18.9 Pneumonia, unspecified organism (principal); J96.21 Acute and chronic respiratory failure with hypoxia; I27.2 Other secondary pulmonary hypertension; Z99.81 Dependence on supplemental oxygen; Z68.41 Body mass index [BMI] 40.0-44.9, adult; E66.2 Morbid (severe) obesity with alveolar hypoventilation; J98.11 Atelectasis; N39.0 Urinary tract infection, site not specified; G35 Multiple sclerosis; R33.9 Retention of urine, unspecified; B96.1 Klebsiella pneumoniae [K. pneumoniae] as the cause of diseases classified elsewhere; I10 Essential (primary) hypertension; E78.5 Hyperlipidemia, unspecified; E03.9 Hypothyroidism, unspecified; F32.9 Major depressive disorder, single episode, unspecified; Z66 Do not resuscitate; E11.9 Type 2 diabetes mellitus without complications
CPT/HCPCS: 1NP; 2NAP; 36415; 73030-LT; 74176; 81001; 82436; 87040; 87070; 87086; 87449; 87450; 87804; 87804-59; 93005; 93010; 93306; 93970; 96372; 97110-GO; 97112-GO; 97163-GP; 97530-GO; J0456; J0696; J1650; J7060